=== PATIENT | male | born 1955 | race Caucasian/White ===

== ENCOUNTER 2018-01-11 13:21 | Outpatient (CLI) | payer OTHER | END 2018-01-11 13:22 | disposition short-term general hospital (02) | LOC: EMS 13:21 | PROVIDERS: ATTEND Surgery | DX: R19.5 Other fecal abnormalities (principal); R73.09 Other abnormal glucose | CPT/HCPCS: A0425; A0427 ==

== ENCOUNTER 2018-11-29 09:16 | Emergency (ER) | payer OTHER ==
[2018-11-29 09:27] VITALS: BP 141/55
--- NOTE | 2018-11-29 10:52 | ED Physician Documentation ---
History of Present Illness - Stated complaint Stated Complaint: MED REFILL - Chief complaint Chief Complaint: General - History obtained from History obtained from: Patient - History of Present Illness Timing: Today - Additonal information Additional information: 63-year-old insulin-dependent diabetic male has run out of needles. He thought he had another box and finds that he does not. He is requesting simply we provide a prescription for another box of needles. Review of Systems Constitutional: denies: Fever Respiratory: denies: Cough GI: denies: Vomiting PD PAST MEDICAL HISTORY - Past Medical History Past Medical History: Yes Endocrine/Autoimmune: Type 2 diabetes - Present Medications Home Medications: Ambulatory Orders Medication Instructions Recorded Confirmed Pen Needle, Diabetic [Insulin Pen 1 each MC DAILY PM #100 dis.needle 11/29/18 Needle] - Allergies Allergies/Adverse Reactions: Allergies Allergy/AdvReac Type Severity Reaction Status Date / Time No Known Drug Allergies Allergy Verified 11/29/18 09:24 - Social History Does the pt smoke?: No Smoking Status: Never smoker PD ED PE NORMAL - Vitals Vital signs reviewed: Yes (hypertensive mild ) - General General: Alert and oriented X 3, No acute distress, Well developed/nourished - HEENT HEENT: Atraumatic, PERRL, EOMI - Respiratory Respiratory: No respiratory distress - Derm Derm: Normal color, Warm and dry, No rash - Extremities Extremities: No deformity, No edema - Neuro Neuro: Alert and oriented X 3, 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 He is not otherwise ill. Departure - Departure Disposition: 01 Home, Self Care Clinical Impression: Encounter for issue of repeat prescription Condition: Stable Prescriptions: Pen Needle, Diabetic [Insulin Pen Needle] 1 each MC DAILY PM #100 dis.needle
== END 2018-11-29 10:55 | disposition home or self-care (01) ==
LOC: ED 09:16
DX: E11.9 Type 2 diabetes mellitus without complications (principal); Z79.4 Long term (current) use of insulin; Z76.0 Encounter for issue of repeat prescription
CPT/HCPCS: 99282; 99283

== ENCOUNTER 2021-09-21 13:13 | Outpatient (CLI) | payer MEDICARE, OTHER | END 2021-09-21 13:14 | disposition short-term general hospital (02) | LOC: EMS 13:13 | DX: R11.2 Nausea with vomiting, unspecified (principal); R19.7 Diarrhea, unspecified | CPT/HCPCS: A0425; A0429 ==

== ENCOUNTER 2023-11-24 15:30 | Emergency (ER) | payer MEDICARE, OTHER ==
[2023-11-24 15:40] VITALS: O2SAT 97
--- NOTE | 2023-11-24 16:20 | ED Physician Documentation ---
History of Present Illness - Stated complaint Stated Complaint: MED REFILL - Chief complaint Chief Complaint: General - History obtained from History obtained from: Patient - History of Present Illness Timing: Today (pt diabetic and L[place]. He does not want to be without. here for Rx.) PD PAST MEDICAL HISTORY - Past Medical History Past Medical History: Yes Endocrine/Autoimmune: Type 2 diabetes - Present Medications Home Medications: Ambulatory Orders Medication Instructions Recorded Confirmed Pen Needle, Diabetic [Insulin Pen 1 each MC DAILY PM #100 dis.needle 11/29/18 Needle] Insulin Glargine [Lantus Solostar] 70 unit SUBQ QPM #1 each 11/24/23 - Allergies Allergies/Adverse Reactions: Allergies Allergy/AdvReac Type Severity Reaction Status Date / Time No Known Drug Allergies Allergy Verified 11/24/23 15:35 - Social History Does the pt smoke?: No Smoking Status: Never smoker Does the pt drink ETOH?: No Does the pt have substance abuse?: No - Immunizations Immunizations are current?: Yes Results - Vitals Vitals: Oxygen O2 Source Room air PD Medical Decision Making - ED course Complexity details: considered differential (out of Lantus [place]. He does not want to be without of course. Here for Rx to get elsewhere. ), d/w patient Departure - Departure Disposition: 01 Home, Self Care Clinical Impression: Diabetes, Medication refill Condition: Stable Record reviewed to determine appropriate education?: Yes Prescriptions: Insulin Glargine [Lantus Solostar] 70 unit SUBQ QPM #1 each Comments: Continue with your usual medications of the Lantus. I sent a prescription to [facility] pharmacy. Forms: PCP List Discharge Date/Time: 11/24/23 16:33
[2023-11-24 16:41] VITALS: BP 140/60
== END 2023-11-24 16:33 | disposition home or self-care (01) ==
LOC: ED 15:30
DX: Z76.0 Encounter for issue of repeat prescription (principal); E11.9 Type 2 diabetes mellitus without complications; Z79.4 Long term (current) use of insulin
CPT/HCPCS: 99281; 99283

== ENCOUNTER 2024-05-24 12:54 | Inpatient (IN) ==
[2024-05-24 13:41] LABS: BASOPHILS % (AUTO) 0.3 %; EOSINOPHILS # (AUTO) 0.1 10^3/uL (0.0-0.7); EOSINOPHILS % (AUTO) 0.8 %; LYMPHOCYTES # (AUTO) 1.9 10^3/uL (1.5-3.5); LYMPHOCYTES % (AUTO) 14.7 %; MEAN CORPUSCULAR HEMOGLOBIN 29.7 pg (27.0-31.0); MEAN CORPUSCULAR HGB CONC 30.7 g/dL (32.0-36.0); MEAN CORPUSCULAR VOLUME 96.7 fL (80.0-94.0); MEAN PLATELET VOLUME 10.3 fL (7.4-11.4); MONOCYTES # (AUTO) 1.1 10^3/uL (0.0-1.0); MONOCYTES % (AUTO) 8.8 %; NEUTROPHILS # (AUTO) 9.6 10^3/uL (1.5-6.6); NEUTROPHILS % (AUTO) 74.5 %; NRBC ABSOLUTE COUNT (AUTO) 0.09 x10^3/uL; NUCLEATED RED BLOOD CELLS AUTO 0.7 /100WBC; PLT - PLATELET COUNT 153 10^3/uL (130-450); RED BLOOD COUNT 1.82 10^6/uL (4.70-6.10); RED CELL DISTRIBUTION WIDTH 16.8 % (12.0-15.0); WHITE BLOOD COUNT 12.9 x10^3/uL (4.8-10.8)
--- NOTE | 2024-05-24 13:43 | ED Physician Documentation ---
PD HPI SYNCOPE Stated complaint Stated Complaint: "NOT FEELING GOOD" Chief complaint Chief Complaint: General History obtained from History obtained from: Patient and EMS Meds/Allgy Home Medications Ambulatory Orders Medication Instructions Recorded Confirmed pen needle, diabetic 31 gauge x ##100 11/29/1805/21" insulin glargine 100 unit/mL (3 70 unit (0.7 mL) subcut QPM #1 ea 11/24/23 mL) subcutaneous pen (Lantus Solostar U-100 Insulin) Allergies Allergies Allergy/AdvReac Type Severity Reaction Status Date / Time No Known Drug Allergies Allergy Verified 05/24/24 13:05 PFSH Social History Social History Smoking Status: Never smoker Do you feel safe in your home environment?: Yes Suffered physical, verbal, emotional, or financial abuse?: No History of Abuse: No Results Vitals Vitals: Vital Signs - 24 hr 05/24/24 13:06 05/24/24 13:53 05/24/24 14:08 Temperature 36.5 C Temperature Source Oral Pulse Rate 88 63 66 Pulse Rate [Brachial] Respiratory Rate 22 14 16 Blood Pressure 110/40 L 108/37 L 112/34 L Blood Pressure [Left Brachial artery] O2 Saturation 98 100 97 O2 Source Room air Room air Room air Sedation scale Pain Intensity 4 0 05/24/24 14:38 05/24/24 15:08 05/24/24 16:09 Temperature 35.8 C L Temperature Source Temporal Artery Scan Pulse Rate 58 L 55 L Pulse Rate [Brachial] 61 Respiratory Rate 18 14 16 Blood Pressure 98/21 L 102/32 L Blood Pressure [Left Brachial artery] 104/39 L O2 Saturation 99 100 100 O2 Source Room air Room air Room air Sedation scale 1-Arouses easily Pain Intensity 05/24/24 16:28 Temperature 35.9 C L Temperature Source Temporal Artery Scan Pulse Rate Pulse Rate [Brachial] 60 Respiratory Rate 18 Blood Pressure Blood Pressure [Left Brachial artery] 98/44 L O2 Saturation 100 O2 Source Room air Sedation scale 1-Arouses easily Pain Intensity 4 Oxygen O2 Source Room air Labs Labs: Microbiology 05/24/24 14:08 Occult Blood - Final Stool Laboratory Tests 05/24/24 05/24/24 05/24/24 13:13 13:34 14:38 WBC 12.9 H RBC 1.82 L Hgb 5.4 L* Hct 17.6 L* MCV 96.7 H MCH 29.7 MCHC 30.7 L RDW 16.8 H Plt Count 153 MPV 10.3 Neut # (Auto) 9.6 H Lymph # (Auto) 1.9 [place] # (Auto) 1.1 H Eos # (Auto) 0.1 Baso # (Auto) 0.0 Absolute Nucleated RBC 0.09 Nucleated RBC % 0.7 Sodium 138 Potassium 4.5 Chloride 111 Carbon Dioxide 18 L Anion Gap 9.0 BUN 187 H* Creatinine 2.5 H Estimated GFR (MDRD) 26 L Glucose 177 H POC Whole Bld Glucose 155 Calcium 8.6 Magnesium 2.1 Iron < 10 L TIBC 321 % Saturation TNP Transferrin 229 Total Bilirubin 0.5 AST 39 ALT 28 Alkaline Phosphatase 48 Troponin I High Sens 19.4 Total Protein 5.5 L Albumin 2.9 L Globulin 2.6 Albumin/Globulin Ratio 1.1 Lipase 98 H Blood Type A POSITIVE Blood Type Recheck A POSITIVE Antibody Screen NEGATIVE Crossmatch IS Only See Detail PD Medical Decision Making ED course ED course: Patient with history of upper GI bleed in the past. He states he is been feeling generally weaker over the past several days and was seen at [facility] on 21 May with workup focused on heart with negative EKG, troponin, chest x-ray. He continue with feeling weaker and noted melena type diarrhea around that time and over the next 2 days as well. General weakness today and appears pale. He states he vomited once without any noted blood. No fever or chills or upper respiratory symptoms.He does have no abdominal tenderness. No history of liver disease or alcoholism. Denies history of varices but states he has had ulcers in the past. He is not on blood thinners. His abdomen is nontender. His rectal shows melena type stool which is guaiac positive. Blood pressure is initially slightly soft at 98/44 but improved with IV fluids. Heart rate is normal. Afebrile. Given IV Protonix and a fluid bolus. We will give 2 lines of IVs. I ordered 2 units of red blood cells and to keep the head 1 unit in lab. The patient's radhames al function is poor so held on any angio or contrast CT. Talked with the hospitalist who will see the patient for admission. Discharge Plan Discharge Patient Disposition: 66 [facility] DC/Xfer Condition: Stable Clinical Impression: Acute upper gastrointestinal bleeding, General weakness, Acute anemia Prescriptions: No Action (DME) pen needle, diabetic 1 EACH needle 1 ea miscellaneous DAILY PM Qty: 100 0RF insulin glargine [Lantus Solostar U-100 Insulin] 100 UNIT/ML insulin pen 70 unit subcut QPM Qty: 1 1RF Print Language: Syriac
[2024-05-24 13:51] LABS: HCT - HEMATOCRIT 17.6 % (42.0-52.0); HGB - HEMOGLOBIN 5.4 g/dL (14.0-18.0)
[2024-05-24 14:00] LABS: TROPONIN I HIGH SENSITIVITY 19.4 ng/L (2.3-19.7)
[2024-05-24 14:32] LABS: IRON < 10 ug/dL (50-212); MAGNESIUM 2.1 mg/dL (1.7-2.3); TOTAL IRON BINDING CAPACITY 321 ug/dL (250-450); TRANSFERRIN 229 mg/dL (203-362)
[2024-05-24] MEDS ORDERED: iohexoL-300 100 ML VIAL ONE (14:33)
[2024-05-24 14:38] LABS: ALBUMIN 2.9 g/dL (3.2-5.5); ALBUMIN/GLOBULIN RATIO 1.1 (1.0-2.2); BILIRUBIN,TOTAL 0.5 mg/dL (0.2-1.0); CALCIUM 8.6 mg/dL (8.5-10.3); CREATININE 2.5 mg/dL (0.6-1.3); POTASSIUM 4.5 mmol/L (3.5-4.5); TOTAL PROTEIN 5.5 g/dL (6.4-8.9)
[2024-05-24] MEDS: PANTOPRAZOLE 40 MG VIAL IVP STA (14:56)
--- NOTE | 2024-05-24 15:07 | XRAY Report ---
PROCEDURE: XR Chest 1V INDICATIONS: Chest pain TECHNIQUE: One view of the chest was acquired. COMPARISON: None. FINDINGS: Surgical changes and devices: None. Lungs and pleura: No pleural effusions or pneumothorax. Prominent interstitial markings No consolida tion. Mediastinum: Mediastinal contours appear normal. Heart size is enlarged. Bones and chest wall: No suspicious bony lesions. Overlying soft tissues appear unremarkable. IMPRESSION: Cardiomegaly. Prominent interstitial markings. Findings may represent pulmonary edema. Recommend clin ical correlation. Reviewed by: Mirza Toussaint MD on 05/24/2024 3:05 PM PST Approved by: Mirza Toussaint MD on 05/24/2024 3:05 PM PST Station ID: [id number]
[2024-05-24] MEDS: HYDROmorphone 1 MG/ML CARPUJECT IVP STA (16:39)
--- NOTE | 2024-05-24 17:02 | HISTORY & PHYSICAL EXAMINATION ---
Chief Complaint Chief Complaint Chief Complaint: Not feeling good History of Present Illness History Obtained From History obtained from: Patient interview, chart review Exam Limitations: Symptomatically anemic History of Present Illness HPI Comment/Other: 69-year-old male past medical history significant for diabetes on insulin. He reports generalized weakness times several days. He was seen at [facility] on 05/21/2024 with a cardiac focus which was negative. He has continued to feel weaker and presents here. He reports melanotic stools. He reports 1 episode of vomiting without amanda blood or coffee-ground emesis. No abdominal time tenderness. Denies fever, chills, chest pain, shortness of breath. He reports history of ulcers in the past. No history of alcoholism, liver disease, blood thinners. In the ER, chest x-ray was performed which showed prominent interstitial markings likely representing pulmonary edema. His H&H was noted to be 5.4/17.6. WBC 12.9. BUN/creatinine was 187/2.5. Iron less than 10. General surgery was contacted by the ER provider, he plans to see this patient in consultation. 2 units of blood were ordered by ER provider, and hospitalist was contacted for admission for acute blood loss anemia secondary to upper GI bleed Meds/Allgy Home Medications Ambulatory Orders Medication Instructions Recorded Confirmed pen needle, diabetic 31 gauge x ##100 11/29/1805/21" insulin glargine 100 unit/mL (3 70 unit (0.7 mL) subcut QPM #1 ea 11/23/ mL) subcutaneous pen (Lantus Solostar U-100 Insulin) Allergies Allergies Allergy/AdvReac Type Severity Reaction Status Date / Time No Known Drug Allergies Allergy Verified 05/24/24 13:05 [facility] Medical History Medical History (Updated 05/24/24 @ 17:12 by Jarod Howell DNP) Type 2 diabetes mellitus with insulin therapy Social History Social History Smoking Status: Never smoker Do you feel safe in your home environment?: Yes Suffered physical, verbal, emotional, or financial abuse?: No History of Abuse: No Review of Systems ROS limited due to symptomatic anemia Status of ROS: 10 or more systems reviewed and unremarkable except as noted in history and below Constitutional Reports: Malaise and Weakness; Denies: Fever or Chills Cardiovascular Denies: chest pain, palpitations or shortness of breath with exertion Respiratory Denies: Shortness of breath Gastrointestinal Reports: Nausea, Vomiting, Heartburn and Melena; Denies: Abdominal pain or Coffee grounds in vomit Genitourinary Denies: Painful urination Neurological Reports: General weakness and Weakness in extremities; Denies: Focal weakness Exam Exam Ill-appearing obese male in no acute distress HENMT normocephalic and head/scalp atraumatic Eyes PERRL Neck/C-Spine visual inspection normal Lymph no lymphadenopathy noted Chest inspection of chest normal Respiratory breath sounds equal bilaterally and normal respiratory effort Cardiovascular normal heart rate noted Gastrointestinal abdomen normal to inspection, nontender to palpation and normoactive bowel sounds Genitourinary bladder normal to palpation Extremities normal to inspection Neurology chair frame builder II-XII intact and GCS 15 Psychiatry mental status grossly normal Skin skin color abnormal (pale) Conclusion/Plan Problem List (1) Acute upper gastrointestinal bleeding: Plan: Admit inpatient Protonix IV push twice daily 40 mg General Surgery consult N.p.o., sips with meds Receiving 2 units PRBC now Keep 2 units ahead H&H every 4 Iron level less than 10 Ferrlecit one-time dose after 2 units of blood is transfused (2) Acute kidney failure: Plan: Likely secondary to hypovolemia Replete blood as above BMP in a.m. (3) Leukocytosis: Plan: Likely reactionary to acute blood loss anemia CBC in a.m. (4) Type 2 diabetes mellitus with insulin therapy: Plan: Home med list has not been verified yet, but it states that he is on 70 units of insulin at night A1c in a.m. SSI (5) Pulmonary edema: Plan: Noted on chest x-ray Saturating 100% on room air Will give Lasix if oxygenation status changes Plan Admit to inpatient Patient request DNR status He names his daughter as his surrogate decision-maker Lab Results Lab results reviewed: Yes 05/24/24 13:34 05/24/24 13:34 Diagnostic Imaging Results Diagnostic Imaging Results: positive Final report reviewed Diagnostic Imaging Results Comments: CXR chest: Pulmonary edema Core Measures Anticipated LOS I expect patient to be DC'd or transferred within 96 hours.: Yes DVT/VTE - Prophylaxis VTE/DVT Device ordered at admit?: Yes
[2024-05-24] MEDS ORDERED: ONDANSETRON 4 MG/2 ML VIAL IVP PRN (18:07)
[2024-05-24] MEDS ORDERED: ONDANSETRON ODT 4 MG TABLET TL PRN (18:07)
[2024-05-24] MEDS: FUROSEMIDE 20 MG/2 ML VIAL IVP SCH (19:54)
[2024-05-24] MEDS: SODIUM CHLORIDE FLUSH 0.9% 10 ML SYRINGE IVP SCH (19:55)
[2024-05-24] MEDS: PANTOPRAZOLE 40 MG VIAL IVP SCH (20:38)
[2024-05-24] MEDS: SODIUM CHLORIDE FLUSH 0.9% 10 ML SYRINGE IVP PRN (20:39)
[2024-05-24] MEDS: MIDODRINE 2.5 MG TABLET PO SCH (21:04)
[2024-05-24] MEDS ORDERED: MIDODRINE 2.5 MG TABLET PO PRN (21:47)
[2024-05-24] MEDS ORDERED: MIDODRINE 2.5 MG TABLET PO SCH (22:00)
[2024-05-24 23:21] LABS: HCT - HEMATOCRIT 23.4 % (42.0-52.0); HGB - HEMOGLOBIN 7.2 g/dL (14.0-18.0)
[2024-05-25] MEDS: ZINC OXIDE 20% OINT 30 GM TUBE TOP PRN (02:15)
[2024-05-25 02:25] LABS: HGB - HEMOGLOBIN 7.1 g/dL (14.0-18.0)
[2024-05-25] MEDS: ACETAMINOPHEN 325 MG TABLET PO PRN (04:53)
[2024-05-25] MEDS: SODIUM CHLORIDE 0.9% 250 ML IV ONE (04:57)
[2024-05-25] MEDS ORDERED: LACTATED RINGERS 1,000 ML IV SCH (05:00)
[2024-05-25 05:14] LABS: EOSINOPHILS # (AUTO) 0.3 10^3/uL (0.0-0.7); HGB - HEMOGLOBIN 7.1 g/dL (14.0-18.0)
[2024-05-25 05:18] LABS: BASOPHILS # (AUTO) 0.1 10^3/uL (0.0-0.1); BASOPHILS % (AUTO) 0.6 %; EOSINOPHILS % (AUTO) 3.1 %; HCT - HEMATOCRIT 22.5 % (42.0-52.0); LYMPHOCYTES # (AUTO) 1.5 10^3/uL (1.5-3.5); LYMPHOCYTES % (AUTO) 15.8 %; MEAN CORPUSCULAR HEMOGLOBIN 30.1 pg (27.0-31.0); MEAN CORPUSCULAR HGB CONC 31.6 g/dL (32.0-36.0); MEAN CORPUSCULAR VOLUME 95.3 fL (80.0-94.0); MONOCYTES # (AUTO) 0.8 10^3/uL (0.0-1.0); MONOCYTES % (AUTO) 8.8 %; NEUTROPHILS # (AUTO) 6.6 10^3/uL (1.5-6.6); NEUTROPHILS % (AUTO) 71.1 %; NRBC ABSOLUTE COUNT (AUTO) 0.08 x10^3/uL; NUCLEATED RED BLOOD CELLS AUTO 0.9 /100WBC; PLT - PLATELET COUNT 116 10^3/uL (130-450); RED BLOOD COUNT 2.36 10^6/uL (4.70-6.10); WHITE BLOOD COUNT 9.3 x10^3/uL (4.8-10.8)
[2024-05-25 05:28] LABS: MAGNESIUM 2.2 mg/dL (1.7-2.3)
[2024-05-25 05:43] LABS: ALBUMIN/GLOBULIN RATIO 1.4 (1.0-2.2); BILIRUBIN,TOTAL 0.5 mg/dL (0.2-1.0); CALCIUM 8.2 mg/dL (8.5-10.3); CREATININE 2.8 mg/dL (0.6-1.3); POTASSIUM 4.2 mmol/L (3.5-4.5); TOTAL PROTEIN 5.2 g/dL (6.4-8.9)
--- NOTE | 2024-05-25 07:15 | CONSULTATION NOTE ---
Referring Provider Name of Referring Provider:: Dr. Cardoso Consult Date: 05/25/24 Chief Complaint Chief Complaint Chief Complaint: Weakness, fatigue, melena History of Present Illness Admitted From Admitted From:: ED History Obtained From History obtained from: Patient Exam Limitations: None History of Present Illness HPI Comment/Other: 69 male with several days of black, tarry stool associated with fatigue and weakness. he denies abdominal pain. He denies the use of DOAC, NSAID's or antiplatelet medication. He claims to have a history of PUD and has been on antacids in the past but not recently. He was recently evaluated at an OSH for similar symptoms and his Hgb was 10gm/dL. Since admission he has received 2 units of PRBC and his Hgb changed from 5.4 -> 7.1. COUNTS INCLUDE 234 BEDS AT [facility] Medical History Medical History (Updated 05/24/24 @ 17:12 by Jarod Howell DNP) Type 2 diabetes mellitus with insulin therapy Social History Social History Smoking Status: Former smoker Level: Assisted Do you feel safe in your home environment?: Yes Suffered physical, verbal, emotional, or financial abuse?: No History of Abuse: No Meds/Allgy Home Medications Ambulatory Orders Medication Instructions Recorded Confirmed pen needle, diabetic 31 gauge x ##100 11/29/1805/21" insulin glargine 100 unit/mL (3 70 unit (0.7 mL) subcut QPM #1 ea 11/24/23 mL) subcutaneous pen (Lantus Solostar U-100 Insulin) Allergies Allergies Allergy/AdvReac Type Severity Reaction Status Date / Time No Known Drug Allergies Allergy Verified 05/24/24 13:05 Results Lab Results 05/25/24 05:05 05/25/24 05:05 Other Lab Results: Lab Results x24hrs 05/25/24 05/25/24 05/24/24 Range/Units 05:05 02:14 23:03 WBC 9.3 (4.8-10.8) x10^3/uL RBC 2.36 L (4.70-6.10) 10^6/uL Hgb 7.1 L 7.1 L 7.2 L (14.0-18.0) g/dL Hct 22.5 L 23.0 L 23.4 L (42.0-52.0) % MCV 95.3 H (80.0-94.0) fL MCH 30.1 (27.0-31.0) pg MCHC 31.6 L (32.0-36.0) g/dL RDW 17.0 H (12.0-15.0) % Plt Count 116 L (130-450) 10^3/uL MPV 10.0 (7.4-11.4) fL Neut # (Auto) 6.6 (1.5-6.6) 10^3/uL Lymph # (Auto) 1.5 (1.5-3.5) 10^3/uL [place] # (Auto) 0.8 (0.0-1.0) 10^3/uL Eos # (Auto) 0.3 (0.0-0.7) 10^3/uL Baso # (Auto) 0.1 (0.0-0.1) 10^3/uL Absolute Nucleated RBC 0.08 x10^3/uL Nucleated RBC % 0.9 /100WBC Sodium 138 (135-145) mmol/L Potassium 4.2 (3.5-4.5) mmol/L Chloride 110 (101-111) mmol/L Carbon Dioxide 20 L (21-32) mmol/L Anion Gap 8.0 (6-13) BUN 182 H* (6-20) mg/dL Creatinine 2.8 H (0.6-1.3) mg/dL Estimated GFR (MDRD) 22 L (>89) Glucose 154 H (74-104) mg/dL POC Whole Bld Glucose (70-100) mg/dL Calcium 8.2 L (8.5-10.3) mg/dL Magnesium 2.2 (1.7-2.3) mg/dL Iron (50-212) ug/dL TIBC (250-450) ug/dL % Saturation Transferrin (203-362) mg/dL Total Bilirubin 0.5 (0.2-1.0) mg/dL AST 35 (10-42) IU/L ALT 29 (10-60) IU/L Alkaline Phosphatase 55 (42-121) IU/L Troponin I High Sens (2.3-19.7) ng/L Total Protein 5.2 L (6.4-8.9) g/dL Albumin 3.0 L (3.2-5.5) g/dL Globulin 2.2 (2.1-4.2) g/dL Albumin/Globulin Ratio 1.4 (1.0-2.2) Lipase (11-82) U/L Blood Type Blood Type Recheck Antibody Screen Crossmatch IS Only 05/24/24 05/24/24 05/24/24 Range/Units 14:38 13:34 13:13 WBC 12.9 H (4.8-10.8) x10^3/uL RBC 1.82 L (4.70-6.10) 10^6/uL Hgb 5.4 L* (14.0-18.0) g/dL Hct 17.6 L* (42.0-52.0) % MCV 96.7 H (80.0-94.0) fL MCH 29.7 (27.0-31.0) pg MCHC 30.7 L (32.0-36.0) g/dL RDW 16.8 H (12.0-15.0) % Plt Count 153 (130-450) 10^3/uL MPV 10.3 (7.4-11.4) fL Neut # (Auto) 9.6 H (1.5-6.6) 10^3/uL Lymph # (Auto) 1.9 (1.5-3.5) 10^3/uL [place] # (Auto) 1.1 H (0.0-1.0) 10^3/uL Eos # (Auto) 0.1 (0.0-0.7) 10^3/uL Baso # (Auto) 0.0 (0.0-0.1) 10^3/uL Absolute Nucleated RBC 0.09 x10^3/uL Nucleated RBC % 0.7 /100WBC Sodium 138 (135-145) mmol/L Potassium 4.5 (3.5-4.5) mmol/L Chloride 111 (101-111) mmol/L Carbon Dioxide 18 L (21-32) mmol/L Anion Gap 9.0 (6-13) BUN 187 H* (6-20) mg/dL Creatinine 2.5 H (0.6-1.3) mg/dL Estimated GFR (MDRD) 26 L (>89) Glucose 177 H (74-104) mg/dL POC Whole Bld Glucose 155 (70-100) mg/dL Calcium 8.6 (8.5-10.3) mg/dL Magnesium 2.1 (1.7-2.3) mg/dL Iron < 10 L (50-212) ug/dL TIBC 321 (250-450) ug/dL % Saturation TNP Transferrin 229 (203-362) mg/dL Total Bilirubin 0.5 (0.2-1.0) mg/dL AST 39 (10-42) IU/L ALT 28 (10-60) IU/L Alkaline Phosphatase 48 (42-121) IU/L Troponin I High Sens 19.4 (2.3-19.7) ng/L Total Protein 5.5 L (6.4-8.9) g/dL Albumin 2.9 L (3.2-5.5) g/dL Globulin 2.6 (2.1-4.2) g/dL Albumin/Globulin Ratio 1.1 (1.0-2.2) Lipase 98 H (11-82) U/L Blood Type A POSITIVE Blood Type Recheck A POSITIVE Antibody Screen NEGATIVE Crossmatch IS Only See Detail Conclusion and Plan Diagnosis Diagnosis: Acute blood loss anemia due to suspected UGI hemorrhage Plan Plan: 1) EGD for diagnosis and possible therapeutic intervention Consent: EGD Pérez has been counseled for the procedure (Upper endoscopy, possible open procedure to control bleeding), it's indications, risks, benefits and expected outcome as well as alternative therapies. We specifically discussed risks associated with anesthesia and insertion of the endoscope into the UGI tract which includes bleeding and/or injury to the esophagus which may require surgical intervention. Pérez understands, agrees, and consents to the proposed operative strategy and requests that we proceed with the procedure as outlined in our discussion. Les Subramanian MD, [facility] General Surgery Service Review of Systems Constitutional Reports: Fatigue, Malaise, Weakness and Poor appetite Gastrointestinal Reports: Melena Endocrine Reports: Fatigue Exam Constitutional average body habitus [facility] normocephalic, head/scalp atraumatic and hearing grossly normal bilaterally Eyes PERRL and EOMs intact bilaterally Neck/C-Spine visual inspection normal and trachea midline Lymph no lymphadenopathy noted Chest inspection of chest normal Respiratory breath sounds equal bilaterally and normal respiratory effort Cardiovascular normal heart rate noted and regular rhythm noted 2/6 CARLOS Gastrointestinal abdomen normal to inspection, abdomen soft to palpation and nontender to palpation Neurology no movement abnormality noted Psychiatry Drowsy Skin skin color normal and no jaundice
[2024-05-25] MEDS ORDERED: KETAMINE 500 MG/10 ML VIAL ONE (08:20)
[2024-05-25] MEDS ORDERED: PROPOFOL 200 MG/20 ML VIAL IVP ONE (08:20)
[2024-05-25] MEDS ORDERED: ePHEDrine 50 MG/ML VIAL IVP ONE (08:20)
[2024-05-25] MEDS ORDERED: PHENYLEPHRINE HCL 0.5 MG/5 ML AMPULE ONE (08:20)
[2024-05-25] MEDS ORDERED: LIDOCAINE-PF 2% 10 ML AMP SUBQ ONE (08:20)
[2024-05-25] MEDS ORDERED: SODIUM CHLORIDE 0.9% 100ML 100 ML IV ONE (08:31)
--- NOTE | 2024-05-25 09:11 | PROVIDER PROGRESS NOTE ---
Progress Note Progress Note Progress Note: General Surgery Brief Procedure Note (see "Provation" for details) Preop Diagnosis: Anemia, suspect UGI source Postop Diagnosis: Orozco gastroduodenitis with multiple superficial, non-bleeding duodenal ulcers Procedure: EGD with antral biopsies for HP Recommendation: 1) Mylanta 30 ml PO Q6H for next 36 hours 2) PPI for next 10 weeks 3) Serial H&H and transfuse as indicated 4) Surgery will follow Les Subramanian MD, FACS General Surgery Service
[2024-05-25] MEDS: ACETAMINOPHEN 325 MG TABLET PO ONE (09:14)
--- NOTE | 2024-05-25 09:14 | ANESTHESIA PROCEDURE NOTE ---
Pre-Anesthesia VS, & Labs Diagnosis Surgical Diagnosis:: anemia Procedure Procedure: EGD Vitals Vital Signs: Temp Pulse Resp BP Pulse Ox O2 Flow Rate 36.5 C 63 14 95/39 L 100 2 05/25/24 08:38 05/25/24 08:38 05/25/24 08:38 05/25/24 08:38 05/25/24 08:38 05/24/24 18:12 NPO NPO: >8 hours Lab Results Current Lab Results: Laboratory Tests 05/25/24 05:05: WBC 9.3, RBC 2.36 L, Hgb 7.1 L, Hct 22.5 L, MCV 95.3 H, MCH 30.1, MCHC 31.6 L, RDW 17.0 H, Plt Count 116 L, MPV 10.0, Neut # (Auto) 6.6, Lymph # (Auto) 1.5, [place] # (Auto) 0.8, Eos # (Auto) 0.3, Baso # (Auto) 0.1, Absolute Nucleated RBC 0.08, Nucleated RBC % 0.9, Sodium 138, Potassium 4.2, Chloride 110, Carbon Dioxide 20 L, Anion Gap 8.0, BUN 182 H*, Creatinine 2.8 H, Estimated GFR (MDRD) 22 L, Glucose 154 H, Calcium 8.2 L, Magnesium 2.2, Total Bilirubin 0.5, AST 35, ALT 29, Alkaline Phosphatase 55, Total Protein 5.2 L, A lbumin 3.0 L, Globulin 2.2, Albumin/Globulin Ratio 1.4 05/25/24 02:14: Hgb 7.1 L, Hct 23.0 L 05/24/24 23:03: Hgb 7.2 L, Hct 23.4 L 05/24/24 14:38: Blood Type A POSITIVE, Antibody Screen NEGATIVE, Crossmatch IS Only See Detail 05/24/24 13:34: WBC 12.9 H, RBC 1.82 L, Hgb 5.4 L*, Hct 17.6 L*, MCV 96.7 H, MCH 29.7, MCHC 30.7 L, RDW 16.8 H, Plt Count 153, MPV 10.3, Neut # (Auto) 9.6 H, Lymph # (Auto) 1.9, [place] # (Auto) 1.1 H, Eos # (Auto) 0.1, Baso # (Auto) 0.0, Absolute Nucleated RBC 0.09, Nucleated RBC % 0.7, Sodium 138, Potassium 4.5, Chloride 111, Carbon Dioxide 18 L, Anion Gap 9.0, BUN 187 H*, Creatinine 2.5 H, Estimated GFR (MDRD) 26 L, Glucose 177 H, Calcium 8.6, Magnesium 2.1, Iron < 10 L, TIBC 321, % Saturation TNP, Transferrin 229, Total Bilirubin 0.5, AST 39, ALT 28, Alkaline Phosphatase 48, Troponin I High Sens 19.4, Total Protein 5.5 L, A lbumin 2.9 L, Globulin 2.6, Albumin/Globulin Ratio 1.1, Lipase 98 H, Blood Type Recheck A POSITIVE 05/24/24 13:13: POC Whole Bld Glucose 155 05/25/24 05:05 05/25/24 05:05 Meds/Allgy Home Medications Ambulatory Orders Medication Instructions Recorded Confirmed pen needle, diabetic 31 gauge x ##100 11/29/1805/21" insulin glargine 100 unit/mL (3 70 unit (0.7 mL) subcut QPM #1 ea 11/24/23 mL) subcutaneous pen (Lantus Solostar U-100 Insulin) Allergies Allergies Allergy/AdvReac Type Severity Reaction Status Date / Time No Known Drug Allergies Allergy Verified 05/24/24 13:05 [facility] Medical History Medical History (Updated 05/25/24 @ 09:17 by Ketty Lemons CRNA) Encounter for issue of repeat prescription Acute upper gastrointestinal bleeding General weakness Acute anemia Pulmonary edema Acute kidney failure Leukocytosis Type 2 diabetes mellitus with insulin therapy Social History Social History Smoking Status: Former smoker Level: Assisted Do you feel safe in your home environment?: Yes Suffered physical, verbal, emotional, or financial abuse?: No History of Abuse: No POLST POLST Status: DNR Anesthesia Exam (Expanded) Exam General: Moderate distress Dental: WNL Mouth Opening: Greater than 4 Fingerbreadths Neck Mobility: Normal Mallampati classification: III Thyromental Distance: less than 4 cm Respiratory: Decreased breath sounds Cardiovascular: Regular rate Mental/Cognitive Status: Lethargic and Change from baseline Plan Plan Anesthesia Type: General and Total IV Consent for Procedure(s) Verified and Reviewed: Yes Code Status: Do Not Attempt Resuscitation ASA Classification ASA classification: 4-Incapacitating disease Is this case an emergency?: Yes
[2024-05-25] MEDS: FERRIC GLUCONATE 125 MG in SODIUM CHLORIDE 0.9% 100ML 100 ML IV ONE (09:23)
[2024-05-25 11:02] LABS: HCT - HEMATOCRIT 23.3 % (42.0-52.0)
--- NOTE | 2024-05-25 11:04 | PHARMACY PROGRESS NOTE ---
Best Possible Medication History Admit Date and Time: 05/24/24 1653 Home Medications Medication Instructions Recorded Confirmed Type pen needle, diabetic 31 gauge x ##100 11/29/18 Rx 1/" insulin glargine 100 unit/mL (3 70 unit (0.7 mL) subcut QPM #1 ea 11/24/23 05/25/24 Rx mL) subcutaneous pen (Lantus Solostar U-100 Insulin) empagliflozin 10 mg tablet 10 mg PO DAILY 05/25/24 05/25/24 History (Jardiance) ferrous sulfate 325 mg (65 mg 325 mg PO DAILY 05/25/24 05/25/24 History iron) tablet (Feosol) levothyroxine 137 mcg tablet 137 mcg PO DAILY 05/25/24 05/25/24 History (Synthroid) metformin 1,000 mg tablet 1,000 mg PO BID 05/25/24 05/25/24 History multivitamin 1 tab PO DAILY 05/25/24 05/25/24 History rosuvastatin 20 mg tablet 20 mg PO HS 05/25/24 05/25/24 History telmisartan 80 1 tab PO DAILY 05/25/24 05/25/24 History mg-hydrochlorothiazide 25 mg tablet Processed by: Pharmacy Medications reviewed in ED?: No Medication History completed: Yes Patient Interview: Completed Secondary Source(s): Insurance records [facility] Statement: As the person ultimately responsible for medication therapy, providers are able to order a medication from an existing home medication list in [facility] via the "Reconcile Routine" prior to Confirmation of that medication by peer support specialist. Such practice is discouraged except when the physician, in their clinical judgment, deems that a medical need exists for a medication without regard to previous use.
--- NOTE | 2024-05-25 11:16 | ANESTHESIA POST OP EVALUATION ---
Anesthesia Post Eval Post Anesthesia Eval Vitals: Last Vital Signs Temp 36.5 C 05/25/24 08:38 Pulse 63 05/25/24 08:38 Resp 14 05/25/24 08:38 BP 95/39 L 05/25/24 08:38 Pulse Ox 100 05/25/24 08:38 O2 Flow Rate 2 05/24/24 18:12 CV Function Including HR & BP: Stable Pain Control: Satisfactory Nausea & Vomiting: Negative Mental Status: Baseline Respiratory Status: Airway Patent Hydration Status: Satisfactory Anesthesia Complications: None
--- NOTE | 2024-05-25 11:53 | PROVIDER PROGRESS NOTE ---
Subjective Prog Note Date Prog Note Date: 05/25/24 Subjective Pt reports feeling: Improved Current Medications Current Medications Current Medications: Current Medications Generic Name Dose Route Start Last Admin Trade Name Freq PRN Reason Stop Dose Admin Acetaminophen 650 mg 05/24/24 18:07 05/25/24 04:53 Acetaminophen 325 Mg Tablet PO 650 mg Q4HR PRN Administration Pain 1 to 4, or Fever Al Hydroxide/Mg Hydroxide 30 ml 05/25/24 11:00 Mag Hydrox/Al Hydrox/Simeth 30 Ml Udc PO Q4HR DENISHA Furosemide 20 mg 05/24/24 18:25 05/25/24 09:15 Furosemide 20 Mg/2 Ml Vial IVP 20 mg DAILY DENISHA Administration Insulin Glargine-yfgn 70 unit 05/25/24 21:00 Insulin Glargine-Yfgn 300 Unit/3 Ml Pen SUBQ QPM DENISHA Midodrine 5 mg 05/24/24 20:29 05/25/24 06:02 Midodrine 2.5 Mg Tablet PO 5 mg TID DENISHA Administration Midodrine 5 mg 05/24/24 21:47 Midodrine 2.5 Mg Tablet PO 05/25/24 21:46 ONCE PRN NEEDED PER PROVIDER ORDERS Multi-Ingredient Ointment 1 applic 05/24/24 22:03 05/25/24 02:15 Zinc Oxide 20% Oint 30 Gm Tube TOP 1 applic PRN PRN Administration Skin Care Ondansetron HCl 4 mg 05/24/24 18:07 Ondansetron Odt 4 Mg Tablet TL Q6HR PRN Nausea / Vomiting Ondansetron HCl 4 mg 05/24/24 18:07 Ondansetron 4 Mg/2 Ml Vial IVP Q6HR PRN Nausea / Vomiting Pantoprazole Sodium 40 mg 05/24/24 21:00 05/25/24 09:15 Pantoprazole 40 Mg Vial IVP 40 mg BID DENISHA Administration Sodium Bicarbonate 1,300 mg 05/25/24 11:00 Sodium Bicarbonate 650 Mg Tablet PO BID DENISHA Sodium Chloride 10 ml 05/24/24 18:07 05/25/24 02:16 Sodium Chloride Flush 0.9% 10 Ml Syringe IVP 10 ml PRN PRN Administration NEEDED PER PROVIDER ORDERS Sodium Chloride 10 ml 05/24/24 18:07 05/25/24 09:15 Sodium Chloride Flush 0.9% 10 Ml Syringe IVP 10 ml 0100,0900,1700 DENISHA Administration Objective Vital Signs/Intake & Output Reviewed Vital Signs: Yes Vital Signs: Vital Signs x48h Temp Pulse Resp BP BP Pulse Ox 05/25/24 11:46 36.7 C 66 16 107/43 L 98 05/25/24 11:34 36.4 C L 67 16 107/43 L 99 05/25/24 08:38 36.5 C 63 14 95/39 L 100 05/25/24 08:17 36.4 C L 60 18 106/41 L 98 05/25/24 06:06 36.3 C L 62 16 99/43 L 89/30 L 95 05/25/24 04:20 36.5 C 60 20 98/34 L 100 Intake & Output: Intake & Output 05/22/24 05/23/24 05/24/24 05/25/24 23:59 23:59 23:59 23:59 Intake Total 1050 / 1050 360 / 360 Output Total 300 / 300 300 / 300 Balance 750 / 750 60 / 60 Weight (kg) 133.5 kg Objective General Appearance: positive No acute distress and Alert Eyes Bilateral: positive Normal inspection ENT: positive No signs of dehydration Neck: positive No JVD Respiratory: positive Chest non-tender, No respiratory distress and Breath sounds nml Cardiovascular: positive Regular rate & rhythm and Systolic murmur Abdomen: positive Non-tender Skin: positive Color nml Extremities: positive Non-tender Neurologic/Psychiatric: positive Oriented x3 Lab Results 05/25/24 10:53 05/25/24 05:05 Other Labs: Lab Results x24hrs 05/25/24 05/25/24 05/25/24 Range/Units 10:53 05:05 02:14 WBC 9.3 (4.8-10.8) x10^3/uL RBC 2.36 L (4.70-6.10) 10^6/uL Hgb 7.0 L* 7.1 L 7.1 L (14.0-18.0) g/dL Hct 23.3 L 22.5 L 23.0 L (42.0-52.0) % MCV 95.3 H (80.0-94.0) fL MCH 30.1 (27.0-31.0) pg MCHC 31.6 L (32.0-36.0) g/dL RDW 17.0 H (12.0-15.0) % Plt Count 116 L (130-450) 10^3/uL MPV 10.0 (7.4-11.4) fL Neut # (Auto) 6.6 (1.5-6.6) 10^3/uL Lymph # (Auto) 1.5 (1.5-3.5) 10^3/uL [place] # (Auto) 0.8 (0.0-1.0) 10^3/uL Eos # (Auto) 0.3 (0.0-0.7) 10^3/uL Baso # (Auto) 0.1 (0.0-0.1) 10^3/uL Absolute Nucleated RBC 0.08 x10^3/uL Nucleated RBC % 0.9 /100WBC Sodium 138 (135-145) mmol/L Potassium 4.2 (3.5-4.5) mmol/L Chloride 110 (101-111) mmol/L Carbon Dioxide 20 L (21-32) mmol/L Anion Gap 8.0 (6-13) BUN 182 H* (6-20) mg/dL Creatinine 2.8 H (0.6-1.3) mg/dL Estimated GFR (MDRD) 22 L (>89) Glucose 154 H (74-104) mg/dL POC Whole Bld Glucose (70-100) mg/dL Calcium 8.2 L (8.5-10.3) mg/dL Magnesium 2.2 (1.7-2.3) mg/dL Iron (50-212) ug/dL TIBC (250-450) ug/dL % Saturation Transferrin (203-362) mg/dL Total Bilirubin 0.5 (0.2-1.0) mg/dL AST 35 (10-42) IU/L ALT 29 (10-60) IU/L Alkaline Phosphatase 55 (42-121) IU/L Troponin I High Sens (2.3-19.7) ng/L Total Protein 5.2 L (6.4-8.9) g/dL Albumin 3.0 L (3.2-5.5) g/dL Globulin 2.2 (2.1-4.2) g/dL Albumin/Globulin Ratio 1.4 (1.0-2.2) Lipase (11-82) U/L Blood Type Blood Type Recheck Antibody Screen Crossmatch IS Only 05/24/24 05/24/24 05/24/24 Range/Units 23:03 14:38 13:34 WBC 12.9 H (4.8-10.8) x10^3/uL RBC 1.82 L (4.70-6.10) 10^6/uL Hgb 7.2 L 5.4 L* (14.0-18.0) g/dL Hct 23.4 L 17.6 L* (42.0-52.0) % MCV 96.7 H (80.0-94.0) fL MCH 29.7 (27.0-31.0) pg MCHC 30.7 L (32.0-36.0) g/dL RDW 16.8 H (12.0-15.0) % Plt Count 153 (130-450) 10^3/uL MPV 10.3 (7.4-11.4) fL Neut # (Auto) 9.6 H (1.5-6.6) 10^3/uL Lymph # (Auto) 1.9 (1.5-3.5) 10^3/uL [place] # (Auto) 1.1 H (0.0-1.0) 10^3/uL Eos # (Auto) 0.1 (0.0-0.7) 10^3/uL Baso # (Auto) 0.0 (0.0-0.1) 10^3/uL Absolute Nucleated RBC 0.09 x10^3/uL Nucleated RBC % 0.7 /100WBC Sodium 138 (135-145) mmol/L Potassium 4.5 (3.5-4.5) mmol/L Chloride 111 (101-111) mmol/L Carbon Dioxide 18 L (21-32) mmol/L Anion Gap 9.0 (6-13) BUN 187 H* (6-20) mg/dL Creatinine 2.5 H (0.6-1.3) mg/dL Estimated GFR (MDRD) 26 L (>89) Glucose 177 H (74-104) mg/dL POC Whole Bld Glucose (70-100) mg/dL Calcium 8.6 (8.5-10.3) mg/dL Magnesium 2.1 (1.7-2.3) mg/dL Iron < 10 L (50-212) ug/dL TIBC 321 (250-450) ug/dL % Saturation TNP Transferrin 229 (203-362) mg/dL Total Bilirubin 0.5 (0.2-1.0) mg/dL AST 39 (10-42) IU/L ALT 28 (10-60) IU/L Alkaline Phosphatase 48 (42-121) IU/L Troponin I High Sens 19.4 (2.3-19.7) ng/L Total Protein 5.5 L (6.4-8.9) g/dL Albumin 2.9 L (3.2-5.5) g/dL Globulin 2.6 (2.1-4.2) g/dL Albumin/Globulin Ratio 1.1 (1.0-2.2) Lipase 98 H (11-82) U/L Blood Type A POSITIVE Blood Type Recheck A POSITIVE Antibody Screen NEGATIVE Crossmatch IS Only See Detail 05/24/24 Range/Units 13:13 WBC (4.8-10.8) x10^3/uL RBC (4.70-6.10) 10^6/uL Hgb (14.0-18.0) g/dL Hct (42.0-52.0) % MCV (80.0-94.0) fL MCH (27.0-31.0) pg MCHC (32.0-36.0) g/dL RDW (12.0-15.0) % Plt Count (130-450) 10^3/uL MPV (7.4-11.4) fL Neut # (Auto) (1.5-6.6) 10^3/uL Lymph # (Auto) (1.5-3.5) 10^3/uL [place] # (Auto) (0.0-1.0) 10^3/uL Eos # (Auto) (0.0-0.7) 10^3/uL Baso # (Auto) (0.0-0.1) 10^3/uL Absolute Nucleated RBC x10^3/uL Nucleated RBC % /100WBC Sodium (135-145) mmol/L Potassium (3.5-4.5) mmol/L Chloride (101-111) mmol/L Carbon Dioxide (21-32) mmol/L Anion Gap (6-13) BUN (6-20) mg/dL Creatinine (0.6-1.3) mg/dL Estimated GFR (MDRD) (>89) Glucose (74-104) mg/dL POC Whole Bld Glucose 155 (70-100) mg/dL Calcium (8.5-10.3) mg/dL Magnesium (1.7-2.3) mg/dL Iron (50-212) ug/dL TIBC (250-450) ug/dL % Saturation Transferrin (203-362) mg/dL Total Bilirubin (0.2-1.0) mg/dL AST (10-42) IU/L ALT (10-60) IU/L Alkaline Phosphatase (42-121) IU/L Troponin I High Sens (2.3-19.7) ng/L Total Protein (6.4-8.9) g/dL Albumin (3.2-5.5) g/dL Globulin (2.1-4.2) g/dL Albumin/Globulin Ratio (1.0-2.2) Lipase (11-82) U/L Blood Type Blood Type Recheck Antibody Screen Crossmatch IS Only Assessment/Plan Problem List (1) Pulmonary edema: Impression: He is likely in a acute heart failure along with his acute kidney failure. I am avoiding large volumes of fluid resuscitation. An echocardiogram has been ordered. He had some low blood pressures, for which midodrine was started. If his oxygenation worsens, will start IV diuresis. I am holding off for now because of his acute kidney failure. I am hoping with administration of blood and bicarb as described above that his kidney failure will start to resolve and he will begin self diuresing. (2) Acute upper gastrointestinal bleeding: Impression: Protonix IV push twice daily Underwent EGD per general surgery, Recommendations as follows: 1) Mylanta 30 ml PO Q6H for next 36 hours 2) PPI for next 10 weeks 3) Serial H&H and transfuse as indicated (3) Acute kidney failure: Impression: Renal ultrasound ordered Creatinine has worsened overnight even with blood transfusion BMP in a.m. Has a bicarb deficit of 213 mEq. I am cautious in replating his bicarb IV, as he is currently fluid overloaded 50 mEq bicarb IV push x 3, Starting sodium bicarb pills (4) Type 2 diabetes mellitus with insulin therapy: Impression: Med rec shows that he takes greater than 70 units of Lantus at night. Given his acute kidney issues, will hold off on this and managed with only SSI. Will reassess tomorrow to see if he needs Long-acting insulin. An A1c was ordered, but this may be inaccurate given his anemia with multiple blood transfusions. Discussed this with dietitian/diabetes resource team, she is in agreement (5) Leukocytosis: Impression: Resolved (6) Iron deficiency: Impression: His iron level on presentation was undetectably low. He received a dose of Ferrlecit. Resuming home iron supplementation
[2024-05-25] MEDS: MAG HYDROX/AL HYDROX/SIMETH 30 ML UDC PO SCH ×2 (11:58→13:14)
--- NOTE | 2024-05-25 12:05 | Ultrasound Report ---
PROCEDURE: US Renal (Retroperitoneal) INDICATIONS: acute renal failure TECHNIQUE: Real-time scanning was performed of the retroperitoneal organs, with image documentation. COMPARISON: None. FINDINGS: Kidneys: Kidneys are normal in size. Right kidney measures 12.5 cm long; left kidney measures 10.8 cm long. Right renal cortical thickness is 1.0 cm; left renal cortical thickness is 1.1 cm. No gretta d masses, hydronephrosis, or nephrolithiasis. Left renal midpole simple cyst measuring 2.7 x 3.2 x 3 .1 cm. Bladder: Pre-void bladder volume is 277 mL. Patient unable to void. Pre-void images demonstrate no intraluminal masses or stones. On pre-void images, bilateral ureteral jets are noted with color Dopp ler interrogation. (Of note, ureteral jets may not be detectable in up to 25% of cases due to insuff icient differences in specific gravity between ureteral and bladder urine). Miscellaneous: Ascites is present.. IMPRESSION: 1.Limited exam. The kidneys are grossly normal in appearance. No hydronephrosis. 2.Bladder volume of 277 cc, patient was unable to void. Correlate for bladder outlet obstruction. 3.Ascites is present. Reviewed by: Mirza Toussaint MD on 05/25/2024 12:04 PM PST Approved by: Mirza Toussaint MD on 05/25/2024 12:04 PM PST Station ID: [id number]
[2024-05-25] MEDS: diphenhydrAMINE 25 MG CAPSULE PO ONE (13:11)
[2024-05-25] MEDS: SODIUM BICARBONATE 650 MG TABLET PO SCH ×2 (13:12→17:34)
[2024-05-25] MEDS: SODIUM BICARBONATE ABBOJECT 50 MEQ/50 ML SYRINGE IVP SCH ×2 (14:05→19:04)
[2024-05-25] MEDS: SODIUM BICARBONATE ABBOJECT 50 MEQ/50 ML SYRINGE IVP ONE (15:09)
[2024-05-25 16:13] LABS: HCT - HEMATOCRIT 24.6 % (42.0-52.0); HGB - HEMOGLOBIN 7.5 g/dL (14.0-18.0)
[2024-05-25] MEDS: INSULIN LISPRO 300 UNIT/3 ML PEN SUBQ SCH (17:16)
[2024-05-25] MEDS ORDERED: NON FORMULARY MED (Rosuvastatin 20 mg tablet) PO SCH (21:00)
[2024-05-25] MEDS ORDERED: INSULIN GLARGINE-YFGN 300 UNIT/3 ML PEN SUBQ SCH (21:00)
[2024-05-25] MEDS: ATORVASTATIN 40 MG TABLET PO SCH (21:45)
[2024-05-26 01:20] LABS: HCT - HEMATOCRIT 22.7 % (42.0-52.0); HGB - HEMOGLOBIN 7.3 g/dL (14.0-18.0)
[2024-05-26] MEDS: SODIUM CHLORIDE 0.9% 250 ML IV ONE (02:09)
[2024-05-26] MEDS: LEVOTHYROXINE 75 MCG TABLET PO SCH (06:13)
[2024-05-26] MEDS: LEVOTHYROXINE 100 MCG TABLET PO SCH (06:15)
[2024-05-26 06:21] LABS: BASOPHILS % (AUTO) 0.9 %; EOSINOPHILS # (AUTO) 0.3 10^3/uL (0.0-0.7); EOSINOPHILS % (AUTO) 5.6 %; HCT - HEMATOCRIT 21.4 % (42.0-52.0); LYMPHOCYTES # (AUTO) 1.1 10^3/uL (1.5-3.5); LYMPHOCYTES % (AUTO) 23.7 %; MEAN CORPUSCULAR HEMOGLOBIN 30.1 pg (27.0-31.0); MEAN CORPUSCULAR HGB CONC 31.8 g/dL (32.0-36.0); MEAN CORPUSCULAR VOLUME 94.7 fL (80.0-94.0); MEAN PLATELET VOLUME 9.6 fL (7.4-11.4); MONOCYTES # (AUTO) 0.6 10^3/uL (0.0-1.0); NEUTROPHILS # (AUTO) 2.7 10^3/uL (1.5-6.6); NEUTROPHILS % (AUTO) 57.2 %; NRBC ABSOLUTE COUNT (AUTO) 0.04 x10^3/uL; NUCLEATED RED BLOOD CELLS AUTO 0.9 /100WBC; PLT - PLATELET COUNT 68 10^3/uL (130-450); RED BLOOD COUNT 2.26 10^6/uL (4.70-6.10); WHITE BLOOD COUNT 4.7 x10^3/uL (4.8-10.8)
--- NOTE | 2024-05-26 06:32 | PROVIDER PROGRESS NOTE ---
Progress Note Progress Note Progress Note: General Surgery Progress Note S: Awake and comfortable. He tells me he feels better O: VSS, afeb; Abdomen soft; H&H 7.3/22.7 A: UGI bleed due to gastritis and several superficial duodenal ulcers. Biopsy for HP pending. H&H stable; On PPI and mylanta P: Continue antacid therapy. Advance diet as tolerated. Increase activity. Les Subramanian MD, FACS General Surgery Service
[2024-05-26 06:35] LABS: HGB - HEMOGLOBIN 6.8 g/dL (14.0-18.0)
[2024-05-26 06:54] LABS: CALCIUM 7.7 mg/dL (8.5-10.3); CREATININE 2.6 mg/dL (0.6-1.3); POTASSIUM 3.8 mmol/L (3.5-4.5)
[2024-05-26] MEDS ORDERED: LEVOTHYROXINE 137 MCG PO SCH (09:00)
[2024-05-26] MEDS: FERROUS SULFATE 325 MG TABLET PO SCH (09:10)
[2024-05-26] MEDS: MULTIVITAMIN TABLET PO SCH (12:18)
[2024-05-26 13:58] LABS: HCT - HEMATOCRIT 24.6 % (42.0-52.0); HGB - HEMOGLOBIN 7.6 g/dL (14.0-18.0)
--- NOTE | 2024-05-26 15:10 | PROVIDER PROGRESS NOTE ---
Subjective Prog Note Date Prog Note Date: 05/26/24 Prog Note Time: 11:00 Subjective Subjective: Initially sleeping when I came in this AM. Getting a unit of blood. Wright in place. Later today, I come in, and he is up eating. He states that he is concerned about what might come after this hospitalization. concerned about needing rehab. He was not seen by rehab today due to getting blood. Current Medications Current Medications Current Medications: Current Medications Generic Name Dose Route Start Last Admin Trade Name Kamila PRN Reason Stop Dose Admin Acetaminophen 650 mg 05/24/24 18:07 05/26/24 00:39 Acetaminophen 325 Mg Tablet PO 650 mg Q4HR PRN Administration Pain 1 to 4, or Fever Al Hydroxide/Mg Hydroxide 30 ml 05/25/24 12:00 05/26/24 12:18 Mag Hydrox/Al Hydrox/Simeth 30 Ml Udc PO 30 ml Q6H DENISHA Administration Atorvastatin Calcium 40 mg 05/25/24 21:00 05/25/24 21:45 Atorvastatin 40 Mg Tablet PO 40 mg QPM DENISHA Administration Ferrous Sulfate 325 mg 05/26/24 09:00 05/26/24 09:10 Ferrous Sulfate 325 Mg Tablet PO 325 mg DAILY DENISHA Administration Furosemide 20 mg 05/24/24 18:25 05/26/24 09:30 Furosemide 20 Mg/2 Ml Vial IVP 20 mg DAILY DENISHA Administration Insulin Human Lispro 1 - 5 unit 05/25/24 17:00 05/26/24 12:17 Insulin Lispro 300 Unit/3 Ml Pen SUBQ 1 unit 0800,1200,1700,2100 DENISHA Administration Protocol Levothyroxine Sodium 100 mcg 05/26/24 07:00 05/26/24 06:15 Levothyroxine 100 Mcg Tablet PO 100 mcg QDAC DENISHA Administration Levothyroxine Sodium 37.5 mcg 05/26/24 07:00 05/26/24 06:13 Levothyroxine 75 Mcg Tablet PO 37.5 mcg QDAC DENISHA Administration Midodrine 5 mg 05/24/24 20:29 05/26/24 14:28 Midodrine 2.5 Mg Tablet PO 5 mg TID DENISHA Administration Multi-Ingredient Ointment 1 applic 05/24/24 22:03 05/25/24 02:15 Zinc Oxide 20% Oint 30 Gm Tube TOP 1 applic PRN PRN Administration Skin Care Multivitamins 1 tab 05/26/24 12:00 05/26/24 12:18 Multivitamin Tablet PO 1 tab 1200 DENISHA Administration Ondansetron HCl 4 mg 05/24/24 18:07 Ondansetron Odt 4 Mg Tablet TL Q6HR PRN Nausea / Vomiting Ondansetron HCl 4 mg 05/24/24 18:07 Ondansetron 4 Mg/2 Ml Vial IVP Q6HR PRN Nausea / Vomiting Pantoprazole Sodium 40 mg 05/24/24 21:00 05/26/24 09:10 Pantoprazole 40 Mg Vial IVP 40 mg BID DENISHA Administration Sodium Bicarbonate 1,300 mg 05/25/24 17:00 05/26/24 09:10 Sodium Bicarbonate 650 Mg Tablet PO 1,300 mg BID DENISHA Administration Sodium Chloride 10 ml 05/24/24 18:07 05/25/24 19:05 Sodium Chloride Flush 0.9% 10 Ml Syringe IVP 10 ml PRN PRN Administration NEEDED PER PROVIDER ORDERS Sodium Chloride 10 ml 05/24/24 18:07 05/26/24 09:11 Sodium Chloride Flush 0.9% 10 Ml Syringe IVP 10 ml 0100,0900,1700 DENISHA Administration Objective Vital Signs/Intake & Output Reviewed Vital Signs: Yes Vital Signs: Vital Signs x48h Temp Pulse Resp BP Pulse Ox 05/26/24 12:58 36.5 C 64 18 100/65 98 05/26/24 10:18 36.5 C 60 20 114/41 L 98 05/26/24 10:15 36.5 C 57 L 20 98/35 L 98 05/26/24 10:01 36.5 C 87 20 98/35 L 98 05/26/24 09:15 36.5 C 62 18 119/46 L 98 05/26/24 09:00 36.7 C 69 20 112/85 96 Intake & Output: Intake & Output 05/23/24 05/24/24 05/25/24 05/26/24 23:59 23:59 23:59 23:59 Intake Total 1050 / 1050 1500 / 1500 1830 / 1830 Output Total 300 / 300 2650 / 2650 750 / 750 Balance 750 / 750 -1150 / -1150 1080 / 1080 Weight (kg) 133.5 kg Objective General Appearance: positive No acute distress and Alert Eyes Bilateral: positive Normal inspection ENT: positive No signs of dehydration Neck: positive No JVD Respiratory: positive Chest non-tender, No respiratory distress and Breath sounds nml Cardiovascular: positive Regular rate & rhythm and Systolic murmur Abdomen: positive Non-tender Skin: positive Color nml Extremities: positive Non-tender Neurologic/Psychiatric: positive Oriented x3 Lab Results 05/26/24 20:03 05/26/24 06:03 Other Labs: Lab Results x24hrs 05/26/24 05/26/24 05/26/24 Range/Units 13:53 11:42 07:34 WBC (4.8-10.8) x10^3/uL RBC (4.70-6.10) 10^6/uL Hgb 7.6 L (14.0-18.0) g/dL Hct 24.6 L (42.0-52.0) % MCV (80.0-94.0) fL MCH (27.0-31.0) pg MCHC (32.0-36.0) g/dL RDW (12.0-15.0) % Plt Count (130-450) 10^3/uL MPV (7.4-11.4) fL Neut # (Auto) (1.5-6.6) 10^3/uL Lymph # (Auto) (1.5-3.5) 10^3/uL Thomas # (Auto) (0.0-1.0) 10^3/uL Eos # (Auto) (0.0-0.7) 10^3/uL Baso # (Auto) (0.0-0.1) 10^3/uL Absolute Nucleated RBC x10^3/uL Nucleated RBC % /100WBC Sodium (135-145) mmol/L Potassium (3.5-4.5) mmol/L Chloride (101-111) mmol/L Carbon Dioxide (21-32) mmol/L Anion Gap (6-13) BUN (6-20) mg/dL Creatinine (0.6-1.3) mg/dL Estimated GFR (MDRD) (>89) Glucose (74-104) mg/dL POC Whole Bld Glucose 167 123 (70-100) mg/dL Calcium (8.5-10.3) mg/dL Blood Type Antibody Screen Crossmatch IS Only 0105/26/24 05/25/24 Range/Units 06:03 01:04 20:32 WBC 4.7 L (4.8-10.8) x10^3/uL RBC 2.26 L (4.70-6.10) 10^6/uL Hgb 6.8 L* 7.3 L (14.0-18.0) g/dL Hct 21.4 L 22.7 L (42.0-52.0) % MCV 94.7 H (80.0-94.0) fL MCH 30.1 (27.0-31.0) pg MCHC 31.8 L (32.0-36.0) g/dL RDW 17.0 H (12.0-15.0) % Plt Count 68 L (130-450) 10^3/uL MPV 9.6 (7.4-11.4) fL Neut # (Auto) 2.7 (1.5-6.6) 10^3/uL Lymph # (Auto) 1.1 L (1.5-3.5) 10^3/uL Thomas # (Auto) 0.6 (0.0-1.0) 10^3/uL Eos # (Auto) 0.3 (0.0-0.7) 10^3/uL Baso # (Auto) 0.0 (0.0-0.1) 10^3/uL Absolute Nucleated RBC 0.04 x10^3/uL Nucleated RBC % 0.9 /100WBC Sodium 140 (135-145) mmol/L Potassium 3.8 (3.5-4.5) mmol/L Chloride 109 (101-111) mmol/L Carbon Dioxide 24 (21-32) mmol/L Anion Gap 7.0 (6-13) BUN 165 H* (6-20) mg/dL Creatinine 2.6 H (0.6-1.3) mg/dL Estimated GFR (MDRD) 24 L (>89) Glucose 140 H (74-104) mg/dL POC Whole Bld Glucose 149 (70-100) mg/dL Calcium 7.7 L (8.5-10.3) mg/dL Blood Type Antibody Screen Crossmatch IS Only 05/25/24 05/25/24 05/24/24 Range/Units 16:58 15:59 14:38 WBC (4.8-10.8) x10^3/uL RBC (4.70-6.10) 10^6/uL Hgb 7.5 L (14.0-18.0) g/dL Hct 24.6 L (42.0-52.0) % MCV (80.0-94.0) fL MCH (27.0-31.0) pg MCHC (32.0-36.0) g/dL RDW (12.0-15.0) % Plt Count (130-450) 10^3/uL MPV (7.4-11.4) fL Neut # (Auto) (1.5-6.6) 10^3/uL Lymph # (Auto) (1.5-3.5) 10^3/uL Thomas # (Auto) (0.0-1.0) 10^3/uL Eos # (Auto) (0.0-0.7) 10^3/uL Baso # (Auto) (0.0-0.1) 10^3/uL Absolute Nucleated RBC x10^3/uL Nucleated RBC % /100WBC Sodium (135-145) mmol/L Potassium (3.5-4.5) mmol/L Chloride (101-111) mmol/L Carbon Dioxide (21-32) mmol/L Anion Gap (6-13) BUN (6-20) mg/dL Creatinine (0.6-1.3) mg/dL Estimated GFR (MDRD) (>89) Glucose (74-104) mg/dL POC Whole Bld Glucose 129 (70-100) mg/dL Calcium (8.5-10.3) mg/dL Blood Type A POSITIVE Antibody Screen NEGATIVE Crossmatch IS Only See Detail Assessment/Plan Problem List (1) Pulmonary edema: Impression: He is likely in a acute heart failure along with his acute kidney failure. I am avoiding large volumes of fluid resuscitation. He received Lasix this morning with blood transfusion. 20 mg. His fluid balance is negative for 10 mL today. He continues to have some pitting edema on exam. Echocardiogram shows LVH with hyperdynamic systolic function 75% ejection fraction mildly dilated right ventricle with normal function pulmonary pressure 35 mmHg there is sclerosis of the aortic valve without stenosis and mild mitral calcification with trace regurgitation. He had some low blood pressures, for which midodrine was started. If his oxygenation worsens, will start IV diuresis. I am holding off for now because of his acute kidney failure. His kidneys are stable to improving, and he has not required supplemental oxygen. for now will stay the course. (2) Acute upper gastrointestinal bleeding: Impression: Protonix IV push twice daily Underwent EGD per general surgery, Recommendations as follows: 1) Mylanta 30 ml PO Q6H for next 36 hours 2) PPI for next 10 weeks 3) Serial H&H and transfuse as indicated (3) Acute kidney failure: Impression: Renal ultrasound shows No hydronephrosis. The renal cortices are normal in appearance. There was some concern for bladder outlet obstruction. Wright has since been inserted. Creatinine has worsened overnight even with blood transfusion BMP in a.m. Creatinine shows slight improvement from 2.6 to 2.4 bicarb deficit has resolved. I will continue with bicarbonate tablets. His renal function is stable to improving. His baseline creatinine is Not available to me. (4) Type 2 diabetes mellitus with insulin therapy: Impression: Med rec shows that he takes greater than 70 units of Lantus at night. Given his acute kidney issues, will hold off on this and managed with only SSI. He currently on low correction scale insulin and has not required lots of insulin. I will continue to hold his Lantus. A1c is not accurate given number of blood transfusions at this point. Would recommend that he follow-up with hemoglobin A1c in the outpatient environment and further assessment of his diabetes. (5) Leukocytosis: Impression: Resolved (6) Iron deficiency: Impression: His iron level on presentation was undetectably low. He received a dose of Ferrlecit. Resuming home iron supplementation I have spent 38 minutes in the care of this patient today. This includes time [id number], review and ordering of diagnostic imaging and laboratory studies.. Monitoring the patient's signs symptoms, evaluation of medication effectiveness and patient's response to treatment.
[2024-05-26] MEDS: MIDODRINE 2.5 MG TABLET PO SCH (18:12)
[2024-05-26 20:07] LABS: HCT - HEMATOCRIT 23.3 % (42.0-52.0); HGB - HEMOGLOBIN 7.4 g/dL (14.0-18.0)
[2024-05-27 07:29] LABS: BASOPHILS % (AUTO) 0.5 %; EOSINOPHILS # (AUTO) 0.3 10^3/uL (0.0-0.7); EOSINOPHILS % (AUTO) 5.3 %; HCT - HEMATOCRIT 27.4 % (42.0-52.0); HGB - HEMOGLOBIN 8.6 g/dL (14.0-18.0); LYMPHOCYTES # (AUTO) 1.2 10^3/uL (1.5-3.5); LYMPHOCYTES % (AUTO) 20.9 %; MEAN CORPUSCULAR HEMOGLOBIN 30.3 pg (27.0-31.0); MEAN CORPUSCULAR HGB CONC 31.4 g/dL (32.0-36.0); MEAN CORPUSCULAR VOLUME 96.5 fL (80.0-94.0); MEAN PLATELET VOLUME 10.3 fL (7.4-11.4); MONOCYTES # (AUTO) 0.7 10^3/uL (0.0-1.0); MONOCYTES % (AUTO) 11.9 %; NEUTROPHILS # (AUTO) 3.4 10^3/uL (1.5-6.6); NEUTROPHILS % (AUTO) 60.7 %; NRBC ABSOLUTE COUNT (AUTO) 0.02 x10^3/uL; NUCLEATED RED BLOOD CELLS AUTO 0.4 /100WBC; PLT - PLATELET COUNT 83 10^3/uL (130-450); RED BLOOD COUNT 2.84 10^6/uL (4.70-6.10); RED CELL DISTRIBUTION WIDTH 17.1 % (12.0-15.0); WHITE BLOOD COUNT 5.6 x10^3/uL (4.8-10.8)
[2024-05-27 07:50] LABS: CALCIUM 8.2 mg/dL (8.5-10.3); CREATININE 2.2 mg/dL (0.6-1.3); POTASSIUM 4.2 mmol/L (3.5-4.5)
--- NOTE | 2024-05-27 10:43 | PROVIDER PROGRESS NOTE ---
Progress Note Progress Note Progress Note: The patient is currently receivin antacid therapy for gastritis and superficial ulceration of the duodenum. He is hemodynamically stable and his H&H is stable (8.6/27.4). The General Surgery Service will sign off today. Please do not hesitate to contact us if you have further questions or concerns or if you wish to have us continue to follow this patient with you. Les Subramanian MD, FACS General Surgery Service
--- NOTE | 2024-05-27 12:50 | PROVIDER PROGRESS NOTE ---
Subjective Prog Note Date Prog Note Date: 05/27/24 Subjective Subjective: I have stopped by the room 3 times today. The patient has been somnolent at each visit. He just does not seem willing to wake up and engage with me. His vital signs have been normal. He has worked with physical therapy today as well as Occupational Therapy. Recommendation is for [facility] facility. This evening he is finally more awake and alert. However, he is evasive with most of his answers. He can tell me that he is in [place] but says [place] [employer] [place] he knows the month and the year and he is oriented to self. When I ask him about people who have called and checked in on him here in the hospital he is very evasive with his answers and cannot really tell me who these people are or why they would be interested in how he is doing. He does tell me that he has a daughter who lives in [place]. He states that he would be okay with me calling her to talk about how he is doing. Current Medications Current Medications Current Medications: Current Medications Generic Name Dose Route Start Last Admin Trade Name Freq PRN Reason Stop Dose Admin Acetaminophen 650 mg 05/24/24 18:07 05/26/24 00:39 Acetaminophen 325 Mg Tablet PO 650 mg Q4HR PRN Administration Pain 1 to 4, or Fever Al Hydroxide/Mg Hydroxide 30 ml 05/25/24 12:00 05/27/24 12:09 Mag Hydrox/Al Hydrox/Simeth 30 Ml Udc PO 30 ml Q6H DENISHA Administration Atorvastatin Calcium 40 mg 05/25/24 21:00 05/26/24 20:35 Atorvastatin 40 Mg Tablet PO 40 mg QPM DENISHA Administration Ferrous Sulfate 325 mg 05/26/24 09:00 05/27/24 08:39 Ferrous Sulfate 325 Mg Tablet PO 325 mg DAILY DENISHA Administration Furosemide 40 mg 05/28/24 09:00 Furosemide 40 Mg Tablet PO DAILY DENISHA Insulin Human Lispro 1 - 5 unit 05/25/24 17:00 05/27/24 12:09 Insulin Lispro 300 Unit/3 Ml Pen SUBQ Not Given 0800,1200,1700,2100 DENISHA Protocol Levothyroxine Sodium 100 mcg 05/26/24 07:00 05/27/24 06:16 Levothyroxine 100 Mcg Tablet PO 100 mcg QDAC DENISHA Administration Levothyroxine Sodium 37.5 mcg 05/26/24 07:00 05/27/24 06:16 Levothyroxine 75 Mcg Tablet PO 37.5 mcg QDAC DENISHA Administration Midodrine 5 mg 05/26/24 18:00 05/27/24 11:48 Midodrine 2.5 Mg Tablet PO 5 mg 0600,1100,1700 DENISHA Administration Multi-Ingredient Ointment 1 applic 05/24/24 22:03 05/25/24 02:15 Zinc Oxide 20% Oint 30 Gm Tube TOP 1 applic PRN PRN Administration Skin Care Multivitamins 1 tab 05/26/24 12:00 05/27/24 12:09 Multivitamin Tablet PO 1 tab 1200 DENISHA Administration Ondansetron HCl 4 mg 05/24/24 18:07 Ondansetron Odt 4 Mg Tablet TL Q6HR PRN Nausea / Vomiting Ondansetron HCl 4 mg 05/24/24 18:07 Ondansetron 4 Mg/2 Ml Vial IVP Q6HR PRN Nausea / Vomiting Pantoprazole Sodium 40 mg 05/27/24 16:00 Pantoprazole 40 Mg Tablet PO BIDAC [facility] Sodium Bicarbonate 1,300 mg 05/25/24 17:00 05/27/24 08:39 Sodium Bicarbonate 650 Mg Tablet PO 1,300 mg BID DENISHA Administration Sodium Chloride 10 ml 05/24/24 18:07 05/26/24 20:36 Sodium Chloride Flush 0.9% 10 Ml Syringe IVP 10 ml PRN PRN Administration NEEDED PER PROVIDER ORDERS Sodium Chloride 10 ml 05/24/24 18:07 05/27/24 08:40 Sodium Chloride Flush 0.9% 10 Ml Syringe IVP 10 ml 0100,0900,1700 DENISHA Administration Objective Vital Signs/Intake & Output Reviewed Vital Signs: Yes Vital Signs: Vital Signs x48h Temp Pulse Resp BP BP Pulse Ox O2 Flow Rate 05/27/24 08:30 36.4 C L 66 19 126/43 L 95 0 05/27/24 06:08 36.6 C 72 18 123/50 L 98 Intake & Output: Intake & Output 05/24/24 05/25/24 05/26/24 05/27/24 23:59 23:59 23:59 23:59 Intake Total 1050 / 1050 1500 / 1500 1860 / 1860 Output Total 300 / 300 2650 / 2650 2475 / 2475 2650 / 2650 Balance 750 / 750 -1150 / -1150 -615 / -615 -2650 / -2650 Weight (kg) 133.5 kg Objective General Appearance: positive No acute distress and Alert Eyes Bilateral: positive Normal inspection ENT: positive No signs of dehydration Neck: positive No JVD Respiratory: positive Chest non-tender, No respiratory distress and Breath sounds nml Cardiovascular: positive Regular rate & rhythm and Systolic murmur Abdomen: positive Non-tender Skin: positive Color nml Extremities: positive Non-tender Neurologic/Psychiatric: positive Oriented x3, Disoriented to place and Other (moves all extremities equally. ) Lab Results 05/27/24 19:05 05/27/24 19:05 Other Labs: Lab Results x24hrs 05/27/24 05/27/24 05/27/24 Range/Units 11:45 07:48 07:23 WBC 5.6 (4.8-10.8) x10^3/uL RBC 2.84 L (4.70-6.10) 10^6/uL Hgb 8.6 L (14.0-18.0) g/dL Hct 27.4 L (42.0-52.0) % MCV 96.5 H (80.0-94.0) fL MCH 30.3 (27.0-31.0) pg MCHC 31.4 L (32.0-36.0) g/dL RDW 17.1 H (12.0-15.0) % Plt Count 83 L (130-450) 10^3/uL MPV 10.3 (7.4-11.4) fL Neut # (Auto) 3.4 (1.5-6.6) 10^3/uL Lymph # (Auto) 1.2 L (1.5-3.5) 10^3/uL Hancock # (Auto) 0.7 (0.0-1.0) 10^3/uL Eos # (Auto) 0.3 (0.0-0.7) 10^3/uL Baso # (Auto) 0.0 (0.0-0.1) 10^3/uL Absolute Nucleated RBC 0.02 x10^3/uL Nucleated RBC % 0.4 /100WBC Sodium 144 (135-145) mmol/L Potassium 4.2 (3.5-4.5) mmol/L Chloride 111 (101-111) mmol/L Carbon Dioxide 26 (21-32) mmol/L Anion Gap 7.0 (6-13) BUN 125 H* (6-20) mg/dL Creatinine 2.2 H (0.6-1.3) mg/dL Estimated GFR (MDRD) 30 L (>89) Glucose 157 H (74-104) mg/dL POC Whole Bld Glucose 138 143 (70-100) mg/dL Calcium 8.2 L (8.5-10.3) mg/dL Blood Type Antibody Screen Crossmatch IS Only 05/26/24 05/26/24 05/26/24 Range/Units 20:33 20:03 16:43 WBC (4.8-10.8) x10^3/uL RBC (4.70-6.10) 10^6/uL Hgb 7.4 L (14.0-18.0) g/dL Hct 23.3 L (42.0-52.0) % MCV (80.0-94.0) fL MCH (27.0-31.0) pg MCHC (32.0-36.0) g/dL RDW (12.0-15.0) % Plt Count (130-450) 10^3/uL MPV (7.4-11.4) fL Neut # (Auto) (1.5-6.6) 10^3/uL Lymph # (Auto) (1.5-3.5) 10^3/uL Hancock # (Auto) (0.0-1.0) 10^3/uL Eos # (Auto) (0.0-0.7) 10^3/uL Baso # (Auto) (0.0-0.1) 10^3/uL Absolute Nucleated RBC x10^3/uL Nucleated RBC % /100WBC Sodium (135-145) mmol/L Potassium (3.5-4.5) mmol/L Chloride (101-111) mmol/L Carbon Dioxide (21-32) mmol/L Anion Gap (6-13) BUN (6-20) mg/dL Creatinine (0.6-1.3) mg/dL Estimated GFR (MDRD) (>89) Glucose (74-104) mg/dL POC Whole Bld Glucose 143 143 (70-100) mg/dL Calcium (8.5-10.3) mg/dL Blood Type Antibody Screen Crossmatch IS Only 05/26/24 05/24/24 Range/Units 13:53 14:38 WBC (4.8-10.8) x10^3/uL RBC (4.70-6.10) 10^6/uL Hgb 7.6 L (14.0-18.0) g/dL Hct 24.6 L (42.0-52.0) % MCV (80.0-94.0) fL MCH (27.0-31.0) pg MCHC (32.0-36.0) g/dL RDW (12.0-15.0) % Plt Count (130-450) 10^3/uL MPV (7.4-11.4) fL Neut # (Auto) (1.5-6.6) 10^3/uL Lymph # (Auto) (1.5-3.5) 10^3/uL Hancock # (Auto) (0.0-1.0) 10^3/uL Eos # (Auto) (0.0-0.7) 10^3/uL Baso # (Auto) (0.0-0.1) 10^3/uL Absolute Nucleated RBC x10^3/uL Nucleated RBC % /100WBC Sodium (135-145) mmol/L Potassium (3.5-4.5) mmol/L Chloride (101-111) mmol/L Carbon Dioxide (21-32) mmol/L Anion Gap (6-13) BUN (6-20) mg/dL Creatinine (0.6-1.3) mg/dL Estimated GFR (MDRD) (>89) Glucose (74-104) mg/dL POC Whole Bld Glucose (70-100) mg/dL Calcium (8.5-10.3) mg/dL Blood Type A POSITIVE Antibody Screen NEGATIVE Crossmatch IS Only See Detail Assessment/Plan Problem List (1) Pulmonary edema: Impression: 05/27:He continues to have hypotension which is symptomatic with ambulation. He is on midodrine. His ejection fraction is within normal limits and he has some aortic sclerosis. His mental status is much worse today. He is able to lie flat in bed is not having any paroxysmal dyspnea. And his lower extremity edema is not worse.He is -2800 mL for the day. But his creatinine continues to improve. I repeated labs this afternoon, given his change in mental status. I do not see any explanation. 05/26:He is likely in a acute heart failure along with his acute kidney failure. I am avoiding large volumes of fluid resuscitation. He received Lasix this morning with blood transfusion. 20 mg. His fluid balance is negative for 10 mL today. He continues to have some pitting edema on exam. Echocardiogram shows LVH with hyperdynamic systolic function 75% ejection fraction mildly dilated right ventricle with normal function pulmonary pressure 35 mmHg there is sclerosis of the aortic valve without stenosis and mild mitral calcification with trace regurgitation. He had some low blood pressures, for which midodrine was started. If his oxygenation worsens, will start IV diuresis. I am holding off for now because of his acute kidney failure. His kidneys are stable to improving, and he has not required supplemental oxygen. for now will stay the course. (2) Acute upper gastrointestinal bleeding: Impression: Protonix IV push twice daily Underwent EGD per general surgery, Recommendations as follows: 1) Mylanta 30 ml PO Q6H for next 36 hours 2) PPI for next 10 weeks 3) Serial H&H and transfuse as indicated Pathology reviewed. It is H. pylori negative. There are mild patchy reactive changes on gastric biopsy. (3) Acute kidney failure: Impression: Renal ultrasound shows No hydronephrosis. The renal cortices are normal in appearance. There was some concern for bladder outlet obstruction. Wright has since been inserted. Creatinine has worsened overnight even with blood transfusion BMP in a.m. Creatinine shows slight improvement from 2.6 to 2.4 bicarb deficit has resolved. I will continue with bicarbonate tablets. His renal function is stable to improving. His baseline creatinine is Not available to me. Laboratory Tests 05/24/24 05/25/24 05/26/24 13:34 05:05 06:03 BUN 187 H* 182 H* 165 H* Creatinine 2.8 H 2.6 H 05/27/24 05/27/24 07:23 19:05 BUN 125 H* 107 H* Creatinine 2.2 H 2.0 H (4) Type 2 diabetes mellitus with insulin therapy: Impression: Med rec shows that he takes greater than 70 units of Lantus at night. Given his acute kidney issues, will hold off on this and managed with only SSI. He currently on low correction scale insulin and has not required lots of insulin. I will continue to hold his Lantus. A1c is not accurate given number of blood transfusions at this point. Would recommend that he follow-up with hemoglobin A1c in the outpatient environment and further assessment of his diabetes. Laboratory Tests 05/26/24 05/27/24 05/27/24 20:33 07:48 11:45 POC Whole Bld Glucose 143 143 138 05/27/24 16:42 POC Whole Bld Glucose 160 (5) Leukocytosis: Impression: Resolved (6) Iron deficiency: Impression: His iron level on presentation was undetectably low. He received a dose of Ferrlecit. Resuming home iron supplementation I have spent 36 minutes in the care of this patient today. This includes time [id number], review and ordering of diagnostic imaging and laboratory studies.. Monitoring the patient's signs symptoms, evaluation of medication effectiveness and patient's response to treatment.
--- NOTE | 2024-05-27 13:51 | PT Plan of Care ---
Medical/Surgical Past History Past History Medical History (Updated 05/25/24 @ 12:08 by Jarod Howell DNP) Encounter for issue of repeat prescription General weakness Acute anemia Leukocytosis Type 2 diabetes mellitus with insulin therapy
--- NOTE | 2024-05-27 14:01 | OT Plan of Care ---
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 He reports generalized weakness times several days. He was seen at [facility] on 05/21/2024 with a cardiac focus which was negative. He has continued to feel weaker and presents here. He reports melanotic stools. He reports 1 episode of vomiting without amanda blood or coffee-ground emesis. In the ER, chest x-ray was performed which showed prominent interstitial markings likely representing pulmonary edema. His H&H was noted to be 5.4/17.6. WBC 12.9. BUN/creatinine was 187/2.5. Iron less than 10. General surgery was contacted by the ER provider EGD completed ; no acute bleeding noted however required cont units PRBC 2/2 H&H drop. Cont with symptomatic hypotension. Further workup revealed HEVER and Heart failure. Pt met supine in bed, lethargic but arousable to verbal s and tactile stim. A&Ox3 confused to situation. Follows 1 step simple commands with cues and increased time. Presenting with slowed processing and overall cognition however able to participate. Performed supine to sit MAX A x2 EOB MIN A during gown change MAX A x2 sit to stand and SPT bed to chair. Symptomatic hypotension as follows supine 100/46, 118/53 sitting EOB, 102/47 s/p transfer with symptoms, [id number] SPT chair to bed supine 112/40 HR maintained 60s. Symptoms improved supine in bed. RN updated. Currently MAX A ADLs with full set up and increased time. Overall cont to present with decreased endurance, activity tolerance, and ADL status. Will benefit from cont OT services during acute stay. Rec d/c to SNF. -Activities of Daily Living Improve Upper Extremity Dressing to:: Modified Independent Improve Lower Extremity Dressing to:: Modified Independent Improve Grooming/Hygiene to:: Modified Independent Improve Bathing to:: Modified Independent Improve Toileting to:: Modified Independent OT Inpatient Plan PLAN Treatment Frequency: 1x/day Duration: Until goals are met -Discharge Recommendations [facility] Transport Needs at Discharge: [facility]
[2024-05-27] MEDS: PANTOPRAZOLE 40 MG TABLET PO SCH (19:05)
[2024-05-27 19:10] LABS: BASOPHILS % (AUTO) 0.7 %; EOSINOPHILS # (AUTO) 0.2 10^3/uL (0.0-0.7); EOSINOPHILS % (AUTO) 4.2 %; HCT - HEMATOCRIT 27.9 % (42.0-52.0); HGB - HEMOGLOBIN 8.6 g/dL (14.0-18.0); LYMPHOCYTES # (AUTO) 0.9 10^3/uL (1.5-3.5); LYMPHOCYTES % (AUTO) 19.5 %; MEAN CORPUSCULAR HGB CONC 30.8 g/dL (32.0-36.0); MEAN CORPUSCULAR VOLUME 97.2 fL (80.0-94.0); MEAN PLATELET VOLUME 10.9 fL (7.4-11.4); MONOCYTES # (AUTO) 0.5 10^3/uL (0.0-1.0); MONOCYTES % (AUTO) 11.2 %; NEUTROPHILS # (AUTO) 2.9 10^3/uL (1.5-6.6); NEUTROPHILS % (AUTO) 63.7 %; NRBC ABSOLUTE COUNT (AUTO) 0.02 x10^3/uL; NUCLEATED RED BLOOD CELLS AUTO 0.4 /100WBC; PLT - PLATELET COUNT 72 10^3/uL (130-450); RED BLOOD COUNT 2.87 10^6/uL (4.70-6.10); RED CELL DISTRIBUTION WIDTH 17.2 % (12.0-15.0); WHITE BLOOD COUNT 4.6 x10^3/uL (4.8-10.8)
[2024-05-27 19:39] LABS: BILIRUBIN,TOTAL 0.7 mg/dL (0.2-1.0); CALCIUM 8.6 mg/dL (8.5-10.3); POTASSIUM 4.1 mmol/L (3.5-4.5); TOTAL PROTEIN 5.9 g/dL (6.4-8.9)
[2024-05-28 06:00] LABS: BASOPHILS % (AUTO) 0.7 %; EOSINOPHILS # (AUTO) 0.3 10^3/uL (0.0-0.7); EOSINOPHILS % (AUTO) 4.7 %; HCT - HEMATOCRIT 27.6 % (42.0-52.0); HGB - HEMOGLOBIN 8.6 g/dL (14.0-18.0); LYMPHOCYTES % (AUTO) 17.2 %; MEAN CORPUSCULAR HGB CONC 31.2 g/dL (32.0-36.0); MEAN CORPUSCULAR VOLUME 96.2 fL (80.0-94.0); MEAN PLATELET VOLUME 9.9 fL (7.4-11.4); MONOCYTES # (AUTO) 0.6 10^3/uL (0.0-1.0); MONOCYTES % (AUTO) 10.2 %; NEUTROPHILS # (AUTO) 3.7 10^3/uL (1.5-6.6); NEUTROPHILS % (AUTO) 66.8 %; PLT - PLATELET COUNT 91 10^3/uL (130-450); RED BLOOD COUNT 2.87 10^6/uL (4.70-6.10); RED CELL DISTRIBUTION WIDTH 17.1 % (12.0-15.0); WHITE BLOOD COUNT 5.5 x10^3/uL (4.8-10.8)
[2024-05-28 06:25] LABS: CALCIUM 8.3 mg/dL (8.5-10.3)
[2024-05-28 06:31] LABS: THYROID STIMULATING HORMONE 5.79 uIU/mL (0.34-5.60)
[2024-05-28] MEDS: NYSTATIN POWDER 15 GM TOP SCH (09:11)
[2024-05-28] MEDS: FUROSEMIDE 40 MG TABLET PO SCH (09:11)
[2024-05-28] MEDS: ZINC OXIDE 20% OINT 30 GM TUBE TOP SCH (09:11)
[2024-05-28] MEDS ORDERED: LEVOTHYROXINE 25 MCG TABLET PO SCH (11:00)
[2024-05-28] MEDS: LACTATED RINGERS 1,000 ML IV ONE (11:33)
--- NOTE | 2024-05-28 16:23 | PROVIDER PROGRESS NOTE ---
Subjective Prog Note Date Prog Note Date: 05/28/24 Prog Note Time: 16:22 Subjective Subjective: continues to be mildly confused, but better today. he is able to recognize friends at the bedside. Yesterday, he was not able to do this. has some cramping in his legs. Current Medications Current Medications Current Medications: Current Medications Generic Name Dose Route Start Last Admin Trade Name Jagdishq PRN Reason Stop Dose Admin Acetaminophen 650 mg 05/24/24 18:07 05/28/24 12:46 Acetaminophen 325 Mg Tablet PO 650 mg Q4HR PRN Administration Pain 1 to 4, or Fever Al Hydroxide/Mg Hydroxide 30 ml 05/25/24 12:00 05/28/24 11:34 Mag Hydrox/Al Hydrox/Simeth 30 Ml Udc PO 30 ml Q6H DENISHA Administration Atorvastatin Calcium 40 mg 05/25/24 21:00 05/27/24 22:39 Atorvastatin 40 Mg Tablet PO 40 mg QPM DENISHA Administration Ferrous Sulfate 325 mg 05/26/24 09:00 05/28/24 09:10 Ferrous Sulfate 325 Mg Tablet PO 325 mg DAILY DENISHA Administration Furosemide 40 mg 05/28/24 09:00 05/28/24 09:11 Furosemide 40 Mg Tablet PO 40 mg DAILY DENISHA Administration Insulin Human Lispro 1 - 5 unit 05/25/24 17:00 05/28/24 12:46 Insulin Lispro 300 Unit/3 Ml Pen SUBQ 1 unit 0800,1200,1700,2100 DENISHA Administration Protocol Levothyroxine Sodium 100 mcg 05/26/24 07:00 05/28/24 06:14 Levothyroxine 100 Mcg Tablet PO 100 mcg QDAC DENISHA Administration Levothyroxine Sodium 37.5 mcg 05/26/24 07:00 05/28/24 06:14 Levothyroxine 75 Mcg Tablet PO 37.5 mcg QDAC DENISHA Administration Midodrine 5 mg 05/26/24 18:00 05/28/24 16:07 Midodrine 2.5 Mg Tablet PO 5 mg 0600,1100,1700 DENISHA Administration Multi-Ingredient Ointment 1 applic 05/24/24 22:03 05/25/24 02:15 Zinc Oxide 20% Oint 30 Gm Tube TOP 1 applic PRN PRN Administration Skin Care Multi-Ingredient Ointment 1 applic 05/28/24 09:00 05/28/24 09:11 Zinc Oxide 20% Oint 30 Gm Tube TOP 1 applic BID DENISHA Administration Multivitamins 1 tab 05/26/24 12:00 05/28/24 11:34 Multivitamin Tablet PO 1 tab 1200 DENISHA Administration Nystatin 1 applic 05/28/24 09:00 05/28/24 09:11 Nystatin Powder 15 Gm TOP 1 applic BID DENISHA Administration Ondansetron HCl 4 mg 05/24/24 18:07 Ondansetron Odt 4 Mg Tablet TL Q6HR PRN Nausea / Vomiting Ondansetron HCl 4 mg 05/24/24 18:07 Ondansetron 4 Mg/2 Ml Vial IVP Q6HR PRN Nausea / Vomiting Pantoprazole Sodium 40 mg 05/27/24 16:00 05/28/24 16:07 Pantoprazole 40 Mg Tablet PO 40 mg BIDAC DENISHA Administration Sodium Bicarbonate 1,300 mg 05/25/24 17:00 05/28/24 09:11 Sodium Bicarbonate 650 Mg Tablet PO 1,300 mg BID DENISHA Administration Sodium Chloride 10 ml 05/24/24 18:07 05/26/24 20:36 Sodium Chloride Flush 0.9% 10 Ml Syringe IVP 10 ml PRN PRN Administration NEEDED PER PROVIDER ORDERS Sodium Chloride 10 ml 05/24/24 18:07 05/28/24 16:07 Sodium Chloride Flush 0.9% 10 Ml Syringe IVP 10 ml 0100,0900,1700 DENISHA Administration Objective Vital Signs/Intake & Output Reviewed Vital Signs: Yes Vital Signs: Vital Signs x48h Temp Pulse Pulse Resp BP Pulse Ox 05/28/24 15:50 36.6 C 63 16 100/35 L 97 05/28/24 12:50 36.7 C 66 20 133/51 H 96 Intake & Output: Intake & Output 05/25/24 05/26/24 05/27/24 05/28/24 23:59 23:59 23:59 23:59 Intake Total 1500 / 1500 1860 / 1860 880 / 880 2517 / 2517 Output Total 2650 / 2650 2475 / 2475 4150 / 4150 2190 / 2190 Balance -1150 / -1150 -615 / -615 -3270 / -3270 327 / 327 Objective General Appearance: positive No acute distress and Alert Eyes Bilateral: positive Normal inspection ENT: positive No signs of dehydration Neck: positive No JVD Respiratory: positive Chest non-tender, No respiratory distress and Breath sounds nml Cardiovascular: positive Regular rate & rhythm and Systolic murmur Abdomen: positive Non-tender Skin: positive Color nml Extremities: positive Non-tender and Other (mild pedal edema on the right. ) Neurologic/Psychiatric: positive Oriented x3 and Other (moves all extremities equally. ) Lab Results 05/28/24 05:53 05/28/24 05:53 Other Labs: Lab Results x24hrs 05/28/24 05/28/24 05/28/24 Range/Units 11:18 07:37 05:53 WBC 5.5 (4.8-10.8) x10^3/uL RBC 2.87 L (4.70-6.10) 10^6/uL Hgb 8.6 L (14.0-18.0) g/dL Hct 27.6 L (42.0-52.0) % MCV 96.2 H (80.0-94.0) fL MCH 30.0 (27.0-31.0) pg MCHC 31.2 L (32.0-36.0) g/dL RDW 17.1 H (12.0-15.0) % Plt Count 91 L (130-450) 10^3/uL MPV 9.9 (7.4-11.4) fL Neut # (Auto) 3.7 (1.5-6.6) 10^3/uL Lymph # (Auto) 1.0 L (1.5-3.5) 10^3/uL [place] # (Auto) 0.6 (0.0-1.0) 10^3/uL Eos # (Auto) 0.3 (0.0-0.7) 10^3/uL Baso # (Auto) 0.0 (0.0-0.1) 10^3/uL Absolute Nucleated RBC 0.00 x10^3/uL Nucleated RBC % 0.0 /100WBC Sodium 144 (135-145) mmol/L Potassium 4.0 (3.5-4.5) mmol/L Chloride 109 (101-111) mmol/L Carbon Dioxide 29 (21-32) mmol/L Anion Gap 6.0 (6-13) BUN 95 H* (6-20) mg/dL Creatinine 2.0 H (0.6-1.3) mg/dL Estimated GFR (MDRD) 33 L (>89) Glucose 155 H (74-104) mg/dL POC Whole Bld Glucose 161 151 (70-100) mg/dL Calcium 8.3 L (8.5-10.3) mg/dL Magnesium (1.7-2.3) mg/dL Total Bilirubin (0.2-1.0) mg/dL AST (10-42) IU/L ALT (10-60) IU/L Alkaline Phosphatase (42-121) IU/L Total Protein (6.4-8.9) g/dL Albumin (3.2-5.5) g/dL Globulin (2.1-4.2) g/dL Albumin/Globulin Ratio (1.0-2.2) TSH 5.79 H (0.34-5.60) uIU/mL Free T4 Direct 0.76 (0.58-1.64) ng/dL Crossmatch IS Only 05/27/24 05/27/24 05/27/24 Range/Units 21:14 19:05 16:42 WBC 4.6 L (4.8-10.8) x10^3/uL RBC 2.87 L (4.70-6.10) 10^6/uL Hgb 8.6 L (14.0-18.0) g/dL Hct 27.9 L (42.0-52.0) % MCV 97.2 H (80.0-94.0) fL MCH 30.0 (27.0-31.0) pg MCHC 30.8 L (32.0-36.0) g/dL RDW 17.2 H (12.0-15.0) % Plt Count 72 L (130-450) 10^3/uL MPV 10.9 (7.4-11.4) fL Neut # (Auto) 2.9 (1.5-6.6) 10^3/uL Lymph # (Auto) 0.9 L (1.5-3.5) 10^3/uL [place] # (Auto) 0.5 (0.0-1.0) 10^3/uL Eos # (Auto) 0.2 (0.0-0.7) 10^3/uL Baso # (Auto) 0.0 (0.0-0.1) 10^3/uL Absolute Nucleated RBC 0.02 x10^3/uL Nucleated RBC % 0.4 /100WBC Sodium 144 (135-145) mmol/L Potassium 4.1 (3.5-4.5) mmol/L Chloride 110 (101-111) mmol/L Carbon Dioxide 27 (21-32) mmol/L Anion Gap 7.0 (6-13) BUN 107 H* (6-20) mg/dL Creatinine 2.0 H (0.6-1.3) mg/dL Estimated GFR (MDRD) 33 L (>89) Glucose 153 H (74-104) mg/dL POC Whole Bld Glucose 141 160 (70-100) mg/dL Calcium 8.6 (8.5-10.3) mg/dL Magnesium 3.0 H (1.7-2.3) mg/dL Total Bilirubin 0.7 (0.2-1.0) mg/dL AST 34 (10-42) IU/L ALT 32 (10-60) IU/L Alkaline Phosphatase 72 (42-121) IU/L Total Protein 5.9 L (6.4-8.9) g/dL Albumin 3.0 L (3.2-5.5) g/dL Globulin 2.9 (2.1-4.2) g/dL Albumin/Globulin Ratio 1.0 (1.0-2.2) TSH (0.34-5.60) uIU/mL Free T4 Direct (0.58-1.64) ng/dL Crossmatch IS Only 05/24/24 Range/Units 14:38 WBC (4.8-10.8) x10^3/uL RBC (4.70-6.10) 10^6/uL Hgb (14.0-18.0) g/dL Hct (42.0-52.0) % MCV (80.0-94.0) fL MCH (27.0-31.0) pg MCHC (32.0-36.0) g/dL RDW (12.0-15.0) % Plt Count (130-450) 10^3/uL MPV (7.4-11.4) fL Neut # (Auto) (1.5-6.6) 10^3/uL Lymph # (Auto) (1.5-3.5) 10^3/uL [place] # (Auto) (0.0-1.0) 10^3/uL Eos # (Auto) (0.0-0.7) 10^3/uL Baso # (Auto) (0.0-0.1) 10^3/uL Absolute Nucleated RBC x10^3/uL Nucleated RBC % /100WBC Sodium (135-145) mmol/L Potassium (3.5-4.5) mmol/L Chloride (101-111) mmol/L Carbon Dioxide (21-32) mmol/L Anion Gap (6-13) BUN (6-20) mg/dL Creatinine (0.6-1.3) mg/dL Estimated GFR (MDRD) (>89) Glucose (74-104) mg/dL POC Whole Bld Glucose (70-100) mg/dL Calcium (8.5-10.3) mg/dL Magnesium (1.7-2.3) mg/dL Total Bilirubin (0.2-1.0) mg/dL AST (10-42) IU/L ALT (10-60) IU/L Alkaline Phosphatase (42-121) IU/L Total Protein (6.4-8.9) g/dL Albumin (3.2-5.5) g/dL Globulin (2.1-4.2) g/dL Albumin/Globulin Ratio (1.0-2.2) TSH (0.34-5.60) uIU/mL Free T4 Direct (0.58-1.64) ng/dL Crossmatch IS Only See Detail Assessment/Plan Problem List (1) Pulmonary edema: Impression: 05/28:1 episode of hypotension this morning. Improved with a liter of fluids. Continues to be mildly confused but is improving. He is able to tell me who his friend Bry is. his lungs are clear. His oxygenation is stable on room air. He does not have any paroxysmal nocturnal dyspnea. I have an echocardiogram which shows mild LVH with an ejection fraction of 75%. I do not believe he has an element of CHF. His lower extremity edema is resolving.He has been seen by Occupational Therapy today in the recommendation is for residential facility. We are starting search for SNF. 05/27:He continues to have hypotension which is symptomatic with ambulation. He is on midodrine. His ejection fraction is within normal limits and he has some aortic sclerosis. His mental status is much worse today. He is able to lie flat in bed is not having any paroxysmal dyspnea. And his lower extremity edema is not worse.He is -2800 mL for the day. But his creatinine continues to improve. I repeated labs this afternoon, given his change in mental status. I do not see any explanation. 05/26:He is likely in a acute heart failure along with his acute kidney failure. I am avoiding large volumes of fluid resuscitation. He received Lasix this morning with blood transfusion. 20 mg. His fluid balance is negative for 10 mL today. He continues to have some pitting edema on exam. Echocardiogram shows LVH with hyperdynamic systolic function 75% ejection fraction mildly dilated right ventricle with normal function pulmonary pressure 35 mmHg there is sclerosis of the aortic valve without stenosis and mild mitral calcification with trace regurgitation. He had some low blood pressures, for which midodrine was started. If his oxygenation worsens, will start IV diuresis. I am holding off for now because of his acute kidney failure. His kidneys are stable to improving, and he has not required supplemental oxygen. for now will stay the course. (2) Acute upper gastrointestinal bleeding: Impression: Protonix. I am giving this orally twice daily. I will continue this for 10 weeks. Underwent EGD per general surgery, Recommendations as follows: 1) Mylanta 30 ml PO Q6H for next 36 hours 2) PPI for next 10 weeks 3) Serial H&H and transfuse as indicated Pathology reviewed. It is H. pylori negative. There are mild patchy reactive changes on gastric biopsy. (3) Acute kidney failure: Impression: Renal ultrasound shows No hydronephrosis. The renal cortices are normal in appearance. There was some concern for bladder outlet obstruction. Wright has since been inserted. BMP in a.m. His renal function is stable to improving. His baseline creatinine is Not available to me. = 05/26/24 05/27/24 05/27/24 06:03 07:23 19:05 BUN 125 H* 107 H* Creatinine 2.6 H 2.2 H 2.0 H 05/28/24 05:53 BUN 95 H* Creatinine 2.0 H (4) Iron deficiency: Impression: His iron level on presentation was undetectably low. He received a dose of Ferrlecit. Resuming home iron supplementation I had a 25-minute phone discussion with his daughter this afternoon regarding the course of his care. His daughter had not previously been contacted this hospitalization as he had not asked us to do so. He had a phone conversation with his daughter this afternoon and we have subsequently made contact with her. I have spent 55 minutes in the care of this patient today. This includes time [id number], review and ordering of diagnostic imaging and laboratory studies.. Monitoring the patient's signs symptoms, evaluation of medication effectiveness and patient's response to treatment.
[2024-05-29 06:15] LABS: BASOPHILS % (AUTO) 0.9 %; EOSINOPHILS # (AUTO) 0.3 10^3/uL (0.0-0.7); EOSINOPHILS % (AUTO) 5.5 %; HCT - HEMATOCRIT 25.9 % (42.0-52.0); HGB - HEMOGLOBIN 7.8 g/dL (14.0-18.0); LYMPHOCYTES % (AUTO) 21.1 %; MEAN CORPUSCULAR HEMOGLOBIN 29.3 pg (27.0-31.0); MEAN CORPUSCULAR HGB CONC 30.1 g/dL (32.0-36.0); MEAN CORPUSCULAR VOLUME 97.4 fL (80.0-94.0); MEAN PLATELET VOLUME 10.6 fL (7.4-11.4); MONOCYTES # (AUTO) 0.6 10^3/uL (0.0-1.0); MONOCYTES % (AUTO) 11.7 %; NEUTROPHILS # (AUTO) 2.8 10^3/uL (1.5-6.6); NEUTROPHILS % (AUTO) 60.4 %; PLT - PLATELET COUNT 83 10^3/uL (130-450); RED BLOOD COUNT 2.66 10^6/uL (4.70-6.10); RED CELL DISTRIBUTION WIDTH 16.3 % (12.0-15.0); WHITE BLOOD COUNT 4.7 x10^3/uL (4.8-10.8)
[2024-05-29 06:28] LABS: CALCIUM 8.1 mg/dL (8.5-10.3); CREATININE 1.8 mg/dL (0.6-1.3); POTASSIUM 4.1 mmol/L (3.5-4.5)
--- NOTE | 2024-05-29 13:44 | PROVIDER PROGRESS NOTE ---
Subjective Prog Note Date Prog Note Date: 05/29/24 Prog Note Time: 11:00 Subjective Subjective: Much improved today. He is able to tell me about visitors and who they are. He has been talking to his daughter Jaja on the phone. When I have spoken to Jaja, she tells me that he is telling her that he is not well and that the end is near. He continues to have melanotic stools several times daily. He is eating well. Current Medications Current Medications Current Medications: Current Medications Generic Name Dose Route Start Last Admin Trade Name Freq PRN Reason Stop Dose Admin Acetaminophen 650 mg 05/24/24 18:07 05/28/24 18:12 Acetaminophen 325 Mg Tablet PO 650 mg Q4HR PRN Administration Pain 1 to 4, or Fever Al Hydroxide/Mg Hydroxide 30 ml 05/25/24 12:00 05/29/24 11:46 Mag Hydrox/Al Hydrox/Simeth 30 Ml Udc PO 30 ml Q6H DENISHA Administration Atorvastatin Calcium 40 mg 05/25/24 21:00 05/28/24 21:17 Atorvastatin 40 Mg Tablet PO 40 mg QPM DENISHA Administration Ferrous Sulfate 325 mg 05/26/24 09:00 05/29/24 08:49 Ferrous Sulfate 325 Mg Tablet PO 325 mg DAILY DENISHA Administration Furosemide 40 mg 05/28/24 09:00 05/29/24 08:49 Furosemide 40 Mg Tablet PO 40 mg DAILY DENISHA Administration Insulin Human Lispro 1 - 5 unit 05/25/24 17:00 05/29/24 11:45 Insulin Lispro 300 Unit/3 Ml Pen SUBQ 1 unit 0800,1200,1700,2100 DENISHA Administration Protocol Levothyroxine Sodium 100 mcg 05/26/24 07:00 05/29/24 06:48 Levothyroxine 100 Mcg Tablet PO 100 mcg QDAC DENISHA Administration Levothyroxine Sodium 37.5 mcg 05/26/24 07:00 05/29/24 06:48 Levothyroxine 75 Mcg Tablet PO 37.5 mcg QDAC DENISHA Administration Midodrine 5 mg 05/26/24 18:00 05/29/24 11:46 Midodrine 2.5 Mg Tablet PO 5 mg 0600,1100,1700 DENISHA Administration Multi-Ingredient Ointment 1 applic 05/24/24 22:03 05/25/24 02:15 Zinc Oxide 20% Oint 30 Gm Tube TOP 1 applic PRN PRN Administration Skin Care Multi-Ingredient Ointment 1 applic 05/28/24 09:00 05/29/24 08:49 Zinc Oxide 20% Oint 30 Gm Tube TOP 1 applic BID DENISHA Administration Multivitamins 1 tab 05/26/24 12:00 05/29/24 11:46 Multivitamin Tablet PO 1 tab 1200 DENISHA Administration Nystatin 1 applic 05/28/24 09:00 05/29/24 08:49 Nystatin Powder 15 Gm TOP 1 applic BID DENISHA Administration Ondansetron HCl 4 mg 05/24/24 18:07 Ondansetron Odt 4 Mg Tablet TL Q6HR PRN Nausea / Vomiting Ondansetron HCl 4 mg 05/24/24 18:07 Ondansetron 4 Mg/2 Ml Vial IVP Q6HR PRN Nausea / Vomiting Pantoprazole Sodium 40 mg 05/27/24 16:00 05/29/24 06:49 Pantoprazole 40 Mg Tablet PO 40 mg BIDAC DENISHA Administration Sodium Bicarbonate 1,300 mg 05/25/24 17:00 05/29/24 08:49 Sodium Bicarbonate 650 Mg Tablet PO 1,300 mg BID DENISHA Administration Sodium Chloride 10 ml 05/24/24 18:07 05/26/24 20:36 Sodium Chloride Flush 0.9% 10 Ml Syringe IVP 10 ml PRN PRN Administration NEEDED PER PROVIDER ORDERS Sodium Chloride 10 ml 05/24/24 18:07 05/29/24 08:50 Sodium Chloride Flush 0.9% 10 Ml Syringe IVP 10 ml 0100,0900,1700 DENISHA Administration Objective Vital Signs/Intake & Output Reviewed Vital Signs: Yes Vital Signs: Vital Signs x48h Temp Pulse Pulse Resp BP Pulse Ox 05/29/24 12:23 36.8 C 66 20 128/41 L 98 05/29/24 07:51 36.6 C 62 20 106/30 L 98 Intake & Output: Intake & Output 05/26/24 05/27/24 05/28/24 05/29/24 23:59 23:59 23:59 23:59 Intake Total 1860 / 1860 880 / 880 3007 / 3007 1460 / 1460 Output Total 2475 / 2475 4150 / 4150 2810 / 2810 275 / 275 Balance -615 / -615 -3270 / -3270 197 / 197 1185 / 1185 Objective General Appearance: positive No acute distress and Alert Eyes Bilateral: positive Normal inspection ENT: positive No signs of dehydration Neck: positive No JVD Respiratory: positive Chest non-tender, No respiratory distress and Breath sounds nml Cardiovascular: positive Regular rate & rhythm and Systolic murmur Abdomen: positive Non-tender and Other (obese) Skin: positive Color nml Extremities: positive Non-tender and Other (mild pedal edema on the right. ) Neurologic/Psychiatric: positive Oriented x3 and Other (moves all extremities equally. ) Lab Results 05/29/24 05:48 05/29/24 05:48 Other Labs: Lab Results x24hrs 05/29/24 05/29/24 05/29/24 Range/Units 11:12 07:34 05:48 WBC 4.7 L (4.8-10.8) x10^3/uL RBC 2.66 L (4.70-6.10) 10^6/uL Hgb 7.8 L (14.0-18.0) g/dL Hct 25.9 L (42.0-52.0) % MCV 97.4 H (80.0-94.0) fL MCH 29.3 (27.0-31.0) pg MCHC 30.1 L (32.0-36.0) g/dL RDW 16.3 H (12.0-15.0) % Plt Count 83 L (130-450) 10^3/uL MPV 10.6 (7.4-11.4) fL Neut # (Auto) 2.8 (1.5-6.6) 10^3/uL Lymph # (Auto) 1.0 L (1.5-3.5) 10^3/uL [place] # (Auto) 0.6 (0.0-1.0) 10^3/uL Eos # (Auto) 0.3 (0.0-0.7) 10^3/uL Baso # (Auto) 0.0 (0.0-0.1) 10^3/uL Absolute Nucleated RBC 0.00 x10^3/uL Nucleated RBC % 0.0 /100WBC Sodium 142 (135-145) mmol/L Potassium 4.1 (3.5-4.5) mmol/L Chloride 108 (101-111) mmol/L Carbon Dioxide 28 (21-32) mmol/L Anion Gap 6.0 (6-13) BUN 69 H (6-20) mg/dL Creatinine 1.8 H (0.6-1.3) mg/dL Estimated GFR (MDRD) 37 L (>89) Glucose 177 H (74-104) mg/dL POC Whole Bld Glucose 151 141 (70-100) mg/dL Calcium 8.1 L (8.5-10.3) mg/dL 05/28/24 05/28/24 Range/Units 20:29 16:42 WBC (4.8-10.8) x10^3/uL RBC (4.70-6.10) 10^6/uL Hgb (14.0-18.0) g/dL Hct (42.0-52.0) % MCV (80.0-94.0) fL MCH (27.0-31.0) pg MCHC (32.0-36.0) g/dL RDW (12.0-15.0) % Plt Count (130-450) 10^3/uL MPV (7.4-11.4) fL Neut # (Auto) (1.5-6.6) 10^3/uL Lymph # (Auto) (1.5-3.5) 10^3/uL [place] # (Auto) (0.0-1.0) 10^3/uL Eos # (Auto) (0.0-0.7) 10^3/uL Baso # (Auto) (0.0-0.1) 10^3/uL Absolute Nucleated RBC x10^3/uL Nucleated RBC % /100WBC Sodium (135-145) mmol/L Potassium (3.5-4.5) mmol/L Chloride (101-111) mmol/L Carbon Dioxide (21-32) mmol/L Anion Gap (6-13) BUN (6-20) mg/dL Creatinine (0.6-1.3) mg/dL Estimated GFR (MDRD) (>89) Glucose (74-104) mg/dL POC Whole Bld Glucose 168 128 (70-100) mg/dL Calcium (8.5-10.3) mg/dL Assessment/Plan Problem List (1) Pulmonary edema: Impression: 05/29: Calculation of his mean arterial pressure shows a range between 55 and 71. For the last 3 readings. He has had a normal heart rate. We will continue to get him up in the chair. He does remain on midodrine 5 mg 3 times daily. He has had minimal edema of his right lower extremity. He intermittently complains of pain in both lower extremities. He has none now. His lungs remain clear. he is lying flat in the bed. He is not having any dyspnea he is not having a increase in his respiratory rate. I will obtain a CXR in the AM. I have reviewed the images from the CXR on admit, and it certainly does appear that there is pulmonary edema, no effusion. 05/28:1 episode of hypotension this morning. Improved with a liter of fluids. Continues to be mildly confused but is improving. He is able to tell me who his friend Bry is. his lungs are clear. His oxygenation is stable on room air. He does not have any paroxysmal nocturnal dyspnea. I have an echocardiogram which shows mild LVH with an ejection fraction of 75%. I do not believe he has an element of CHF. His lower extremity edema is resolving.He has been seen by Occupational Therapy today in the recommendation is for residential facility. We are starting search for SNF. 05/27:He continues to have hypotension which is symptomatic with ambulation. He is on midodrine. His ejection fraction is within normal limits and he has some aortic sclerosis. His mental status is much worse today. He is able to lie flat in bed is not having any paroxysmal dyspnea. And his lower extremity edema is not worse.He is -2800 mL for the day. But his creatinine continues to improve. I repeated labs this afternoon, given his change in mental status. I do not see any explanation. 05/26:He is likely in a acute heart failure along with his acute kidney failure. I am avoiding large volumes of fluid resuscitation. He received Lasix this morning with blood transfusion. 20 mg. His fluid balance is negative for 10 mL today. He continues to have some pitting edema on exam. Echocardiogram shows LVH with hyperdynamic systolic function 75% ejection fraction mildly dilated right ventricle with normal function pulmonary pressure 35 mmHg there is sclerosis of the aortic valve without stenosis and mild mitral calcification with trace regurgitation. He had some low blood pressures, for which midodrine was started. If his oxygenation worsens, will start IV diuresis. I am holding off for now because of his acute kidney failure. His kidneys are stable to improving, and he has not required supplemental oxygen. for now will stay the course. (2) Acute upper gastrointestinal bleeding: Impression: Protonix. I am giving this orally twice daily. I will continue this for 10 weeks. He continues to have some melanotic stools. I believe this is clearing from his GI bleed. He is also on iron supplementation so it is difficult to tell He is not have any abdominal pain he is not having any dyspepsia. He is tolerating a diet. Underwent EGD per general surgery, Recommendations as follows: 1) Mylanta 30 ml PO Q6H for next 36 hours 2) PPI for next 10 weeks 3) Serial H&H and transfuse as indicated Pathology reviewed. It is H. pylori negative. There are mild patchy reactive changes on gastric biopsy. (3) Acute kidney failure: Impression: Renal ultrasound shows No hydronephrosis. The renal cortices are normal in appearance. There was some concern for bladder outlet obstruction. Wright has since been inserted. BMP in a.m. His renal function is stable to improving. His baseline creatinine is Not available to me. (4) Iron deficiency: Impression: His iron level on presentation was undetectably low. He received a dose of Ferrlecit. Resuming home iron supplementation Laboratory Tests 05/27/24 05/28/24 05/29/24 19:05 05:53 05:48 Hgb 8.6 L 8.6 L 7.8 L There have been some difficulties with communication with this patient. He has been confused for much of his hospitalization. He is someone who does not have any family close by. his daughter is in [facility] and was not aware that he was in the hospital. He has multiple friends who have come by the hospital, but he was not recognizing any of them and we were unsure about violating his confidentiality. Over the last 24 hours his mental status has begun to clear and he is recognizing his friends and therefore giving us permission to involve them in his care. As stated previously, I had several discussions with his daughter yesterday evening. She is involved with social work and choosing his residential facility and he is more more able to be involved in his choices. 05/29: At this time I do not believe he is fully ready to engage in advance care planning discussion, although I anticipate this is something that could happen this afternoon or tomorrow. Given that his daughter will be here tomorrow, can do ACP at that time. 05/29: 15 min phone conversation with daughter this afternoon. She has decided to come for a visit. She has many questions about her dad's care, and how he is doing. he tells her that he is not doing well. This is at odds with what we are saying, that he is improving every day. It sounds like he really wants her come. I have spent 40 minutes in the care of this patient today. This includes time [id number], review and ordering of diagnostic imaging and laboratory studies.. Monitoring the patient's signs symptoms, evaluation of medication effectiveness and patient's response to treatment.
[2024-05-30 05:48] LABS: BASOPHILS % (AUTO) 0.7 %; EOSINOPHILS # (AUTO) 0.3 10^3/uL (0.0-0.7); EOSINOPHILS % (AUTO) 6.8 %; HCT - HEMATOCRIT 24.7 % (42.0-52.0); HGB - HEMOGLOBIN 7.7 g/dL (14.0-18.0); LYMPHOCYTES # (AUTO) 0.9 10^3/uL (1.5-3.5); LYMPHOCYTES % (AUTO) 22.4 %; MEAN CORPUSCULAR HEMOGLOBIN 30.1 pg (27.0-31.0); MEAN CORPUSCULAR HGB CONC 31.2 g/dL (32.0-36.0); MEAN CORPUSCULAR VOLUME 96.5 fL (80.0-94.0); MEAN PLATELET VOLUME 10.1 fL (7.4-11.4); MONOCYTES # (AUTO) 0.5 10^3/uL (0.0-1.0); MONOCYTES % (AUTO) 11.9 %; NEUTROPHILS # (AUTO) 2.4 10^3/uL (1.5-6.6); NEUTROPHILS % (AUTO) 57.7 %; PLT - PLATELET COUNT 83 10^3/uL (130-450); RED BLOOD COUNT 2.56 10^6/uL (4.70-6.10); RED CELL DISTRIBUTION WIDTH 15.8 % (12.0-15.0); WHITE BLOOD COUNT 4.1 x10^3/uL (4.8-10.8)
[2024-05-30 06:13] LABS: CALCIUM 8.2 mg/dL (8.5-10.3); CREATININE 1.8 mg/dL (0.6-1.3); POTASSIUM 4.2 mmol/L (3.5-4.5)
--- NOTE | 2024-05-30 10:55 | XRAY Report ---
PROCEDURE: XR Chest 1V INDICATIONS: pulm edema TECHNIQUE: One view of the chest was acquired. COMPARISON: Chest x-ray 05/24/2024 FINDINGS: Surgical changes and devices: None. Lungs and pleura: Less prominent appearance of previous increased pulmonary vascularity. Mediastinum: Mediastinal contours appear normal. Heart size is enlarged. Bones and chest wall: No suspicious bony lesions. Overlying soft tissues appear unremarkable. IMPRESSION: Improved appearance of previous pulmonary vascularity. Reviewed by: Eden Jarquin MD on 05/30/2024 10:54 AM PST Approved by: Eden Jarquin MD on 05/30/2024 10:54 AM [facility] Station ID: [id number]
--- NOTE | 2024-05-30 15:47 | PROVIDER PROGRESS NOTE ---
Subjective Prog Note Date Prog Note Date: 05/30/24 Prog Note Time: 12:30 Subjective Subjective: Just finished eating lunch. He is feeling well today. he remembers what [facility] he is going to. Current Medications Current Medications Current Medications: Current Medications Generic Name Dose Route Start Last Admin Trade Name Freq PRN Reason Stop Dose Admin Acetaminophen 650 mg 05/24/24 18:07 05/30/24 13:03 Acetaminophen 325 Mg Tablet PO 650 mg Q4HR PRN Administration Pain 1 to 4, or Fever Al Hydroxide/Mg Hydroxide 30 ml 05/25/24 12:00 05/30/24 11:18 Mag Hydrox/Al Hydrox/Simeth 30 Ml Udc PO 30 ml Q6H DENISHA Administration Atorvastatin Calcium 40 mg 05/25/24 21:00 05/29/24 20:31 Atorvastatin 40 Mg Tablet PO 40 mg QPM DENISHA Administration Ferrous Sulfate 325 mg 05/26/24 09:00 05/30/24 08:37 Ferrous Sulfate 325 Mg Tablet PO 325 mg DAILY DENISHA Administration Furosemide 40 mg 05/28/24 09:00 05/30/24 08:37 Furosemide 40 Mg Tablet PO 40 mg DAILY DENISHA Administration Insulin Human Lispro 1 - 5 unit 05/25/24 17:00 05/30/24 11:50 Insulin Lispro 300 Unit/3 Ml Pen SUBQ 2 unit 0800,1200,1700,2100 DENISHA Administration Protocol Levothyroxine Sodium 100 mcg 05/26/24 07:00 05/30/24 06:23 Levothyroxine 100 Mcg Tablet PO 100 mcg QDAC DENISHA Administration Levothyroxine Sodium 37.5 mcg 05/26/24 07:00 05/30/24 06:23 Levothyroxine 75 Mcg Tablet PO 37.5 mcg QDAC DENISHA Administration Midodrine 5 mg 05/26/24 18:00 05/30/24 11:19 Midodrine 2.5 Mg Tablet PO 5 mg 0600,1100,1700 DENISHA Administration Multi-Ingredient Ointment 1 applic 05/24/24 22:03 05/25/24 02:15 Zinc Oxide 20% Oint 30 Gm Tube TOP 1 applic PRN PRN Administration Skin Care Multi-Ingredient Ointment 1 applic 05/28/24 09:00 05/30/24 08:38 Zinc Oxide 20% Oint 30 Gm Tube TOP 1 applic BID DENISHA Administration Multivitamins 1 tab 05/26/24 12:00 05/30/24 11:18 Multivitamin Tablet PO 1 tab 1200 DENISHA Administration Nystatin 1 applic 05/28/24 09:00 05/30/24 08:37 Nystatin Powder 15 Gm TOP 1 applic BID DENISHA Administration Ondansetron HCl 4 mg 05/24/24 18:07 Ondansetron Odt 4 Mg Tablet TL Q6HR PRN Nausea / Vomiting Ondansetron HCl 4 mg 05/24/24 18:07 Ondansetron 4 Mg/2 Ml Vial IVP Q6HR PRN Nausea / Vomiting Pantoprazole Sodium 40 mg 05/27/24 16:00 05/30/24 06:23 Pantoprazole 40 Mg Tablet PO 40 mg BIDAC DENISHA Administration Sodium Bicarbonate 1,300 mg 05/25/24 17:00 05/30/24 08:37 Sodium Bicarbonate 650 Mg Tablet PO 1,300 mg BID DENISHA Administration Sodium Chloride 10 ml 05/24/24 18:07 05/26/24 20:36 Sodium Chloride Flush 0.9% 10 Ml Syringe IVP 10 ml PRN PRN Administration NEEDED PER PROVIDER ORDERS Sodium Chloride 10 ml 05/24/24 18:07 05/30/24 08:38 Sodium Chloride Flush 0.9% 10 Ml Syringe IVP Not Given 0100,0900,1700 [facility] Objective Vital Signs/Intake & Output Reviewed Vital Signs: Yes Vital Signs: Vital Signs x48h Temp Pulse Resp BP Pulse Ox 05/30/24 15:40 36.9 C 57 L 18 114/48 L 98 05/30/24 13:01 36.7 C 59 L 20 128/43 L 98 Intake & Output: Intake & Output 05/27/24 05/28/24 05/29/24 05/30/24 23:59 23:59 23:59 23:59 Intake Total 880 / 880 3007 / 3007 1999 / 1999 1610 / 1610 Output Total 4150 / 4150 2810 / 2810 275 / 275 1200 / 1200 Balance -3270 / -3270 197 / 197 1725 / 1725 410 / 410 Objective General Appearance: positive No acute distress and Alert Eyes Bilateral: positive Normal inspection ENT: positive No signs of dehydration Neck: positive No JVD Respiratory: positive Chest non-tender, No respiratory distress and Breath sounds nml Cardiovascular: positive Regular rate & rhythm and Systolic murmur Abdomen: positive Non-tender and Other (obese) Skin: positive Color nml Extremities: positive Non-tender and Other (mild pedal edema on the right. ) Neurologic/Psychiatric: positive Oriented x3 and Other (moves all extremities equally. ) Lab Results 05/30/24 05:35 05/30/24 05:35 Other Labs: Lab Results x24hrs 05/30/24 05/30/24 05/30/24 Range/Units 11:08 07:28 05:35 WBC 4.1 L (4.8-10.8) x10^3/uL RBC 2.56 L (4.70-6.10) 10^6/uL Hgb 7.7 L (14.0-18.0) g/dL Hct 24.7 L (42.0-52.0) % MCV 96.5 H (80.0-94.0) fL MCH 30.1 (27.0-31.0) pg MCHC 31.2 L (32.0-36.0) g/dL RDW 15.8 H (12.0-15.0) % Plt Count 83 L (130-450) 10^3/uL MPV 10.1 (7.4-11.4) fL Neut # (Auto) 2.4 (1.5-6.6) 10^3/uL Lymph # (Auto) 0.9 L (1.5-3.5) 10^3/uL Stanly # (Auto) 0.5 (0.0-1.0) 10^3/uL Eos # (Auto) 0.3 (0.0-0.7) 10^3/uL Baso # (Auto) 0.0 (0.0-0.1) 10^3/uL Absolute Nucleated RBC 0.00 x10^3/uL Nucleated RBC % 0.0 /100WBC Sodium 142 (135-145) mmol/L Potassium 4.2 (3.5-4.5) mmol/L Chloride 107 (101-111) mmol/L Carbon Dioxide 30 (21-32) mmol/L Anion Gap 5.0 L (6-13) BUN 54 H (6-20) mg/dL Creatinine 1.8 H (0.6-1.3) mg/dL Estimated GFR (MDRD) 37 L (>89) Glucose 139 H (74-104) mg/dL POC Whole Bld Glucose 196 126 (70-100) mg/dL Calcium 8.2 L (8.5-10.3) mg/dL 05/29/24 05/29/24 Range/Units 20:22 17:01 WBC (4.8-10.8) x10^3/uL RBC (4.70-6.10) 10^6/uL Hgb (14.0-18.0) g/dL Hct (42.0-52.0) % MCV (80.0-94.0) fL MCH (27.0-31.0) pg MCHC (32.0-36.0) g/dL RDW (12.0-15.0) % Plt Count (130-450) 10^3/uL MPV (7.4-11.4) fL Neut # (Auto) (1.5-6.6) 10^3/uL Lymph # (Auto) (1.5-3.5) 10^3/uL Stanly # (Auto) (0.0-1.0) 10^3/uL Eos # (Auto) (0.0-0.7) 10^3/uL Baso # (Auto) (0.0-0.1) 10^3/uL Absolute Nucleated RBC x10^3/uL Nucleated RBC % /100WBC Sodium (135-145) mmol/L Potassium (3.5-4.5) mmol/L Chloride (101-111) mmol/L Carbon Dioxide (21-32) mmol/L Anion Gap (6-13) BUN (6-20) mg/dL Creatinine (0.6-1.3) mg/dL Estimated GFR (MDRD) (>89) Glucose (74-104) mg/dL POC Whole Bld Glucose 155 167 (70-100) mg/dL Calcium (8.5-10.3) mg/dL Assessment/Plan Problem List (1) Acute upper gastrointestinal bleeding: Impression: Protonix. I am giving this orally twice daily. I will continue this for 10 weeks. He continues to have some melanotic stools. I believe this is clearing from his GI bleed. He is also on iron supplementation so it is difficult to tell He is not have any abdominal pain he is not having any dyspepsia. He is tolerating a diet. Underwent EGD per general surgery, Recommendations as follows: 1) Mylanta 30 ml PO Q6H for next 36 hours 2) PPI for next 10 weeks 3) Serial H&H and transfuse as indicated Pathology reviewed. It is H. pylori negative. There are mild patchy reactive changes on gastric biopsy. (2) Pulmonary edema: Impression: 05/30: Chest x-ray shows decreased pulmonary vascularity. This combined with his clinical situation means pulmonary edema is improving. He continues to need the midodrine to maintain relatively normal tensive vital signs. So I will continue this medication on discharge. His lungs are clear to auscultation and his lower extremity edema is minimal. 05/29: Calculation of his mean arterial pressure shows a range between 55 and 71. For the last 3 readings. He has had a normal heart rate. We will continue to get him up in the chair. He does remain on midodrine 5 mg 3 times daily. He has had minimal edema of his right lower extremity. He intermittently complains of pain in both lower extremities. He has none now. His lungs remain clear. he is lying flat in the bed. He is not having any dyspnea he is not having a increase in his respiratory rate. I will obtain a CXR in the AM. I have reviewed the images from the CXR on admit, and it certainly does appear that there is pulmonary edema, no effusion. 05/28:1 episode of hypotension this morning. Improved with a liter of fluids. Continues to be mildly confused but is improving. He is able to tell me who his friend Bry is. his lungs are clear. His oxygenation is stable on room air. He does not have any paroxysmal nocturnal dyspnea. I have an echocardiogram which shows mild LVH with an ejection fraction of 75%. I do not believe he has an element of CHF. His lower extremity edema is resolving.He has been seen by Occupational Therapy today in the recommendation is for correction facility. We are starting search for SNF. 05/27:He continues to have hypotension which is symptomatic with ambulation. He is on midodrine. His ejection fraction is within normal limits and he has some aortic sclerosis. His mental status is much worse today. He is able to lie flat in bed is not having any paroxysmal dyspnea. And his lower extremity edema is not worse.He is -2800 mL for the day. But his creatinine continues to improve. I repeated labs this afternoon, given his change in mental status. I do not see any explanation. 05/26:He is likely in a acute heart failure along with his acute kidney failure. I am avoiding large volumes of fluid resuscitation. He received Lasix this morning with blood transfusion. 20 mg. His fluid balance is negative for 10 mL today. He continues to have some pitting edema on exam. Echocardiogram shows LVH with hyperdynamic systolic function 75% ejection fraction mildly dilated right ventricle with normal function pulmonary pressure 35 mmHg there is sclerosis of the aortic valve without stenosis and mild mitral calcification with trace regurgitation. He had some low blood pressures, for which midodrine was started. If his oxygenation worsens, will start IV diuresis. I am holding off for now because of his acute kidney failure. His kidneys are stable to improving, and he has not required supplemental oxygen. for now will stay the course. (3) Acute kidney failure: Impression: Renal ultrasound shows No hydronephrosis. The renal cortices are normal in appearance. There was some concern for bladder outlet obstruction. Wright has since been inserted. His renal function is stable to improving. His baseline creatinine is Not available to me. Laboratory Tests 05/28/24 05/29/24 05/30/24 05:53 05:48 05:35 Creatinine 2.0 H 1.8 H 1.8 H (4) Iron deficiency: Impression: His iron level on presentation was undetectably low. He received a dose of Ferrlecit. Resuming home iron supplementation Laboratory Tests 05/28/24 05/29/24 05/30/24 05:53 05:48 05:35 Hgb 8.6 L 7.8 L 7.7 L 05/30: daughter at bedside today. Please see ACP discussion notes. He is ready to go to SNF tomorrow. We were unable to obtain transport today. Today was an avoidable day. 05/29:There have been some difficulties with communication with this patient. He has been confused for much of his hospitalization. He is someone who does not have any family close by. his daughter is in [facility] and was not aware that he was in the hospital. He has multiple friends who have come by the hospital, but he was not recognizing any of them and we were unsure about violating his confidentiality. Over the last 24 hours his mental status has begun to clear and he is recognizing his friends and therefore giving us permission to involve them in his care. As stated previously, I had several discussions with his daughter yesterday evening. She is involved with social work and choosing his correction facility and he is more more able to be involved in his choices. 05/29: At this time I do not believe he is fully ready to engage in advance care planning discussion, although I anticipate this is something that could happen this afternoon or tomorrow. Given that his daughter will be here tomorrow, can do ACP at that time. 05/29: 15 min phone conversation with daughter this afternoon. She has decided to come for a visit. She has many questions about her dad's care, and how he is doing. he tells her that he is not doing well. This is at odds with what we are saying, that he is improving every day. It sounds like he really wants her come. I have spent 30 minutes in the care of this patient today. This includes time [id number], review and ordering of diagnostic imaging and laboratory studies.. Monitoring the patient's signs symptoms, evaluation of medication effectiveness and patient's response to treatment.
--- NOTE | 2024-05-30 17:05 | ADVANCE CARE PLANNING NOTE ---
Advance Care Planning Planning Encounter Date: 05/30/24 Time: 03:30 Purpose: determine wishes going forward Parties in Attendance: Patient, friend Hortencia, daughter Loreto Wilkinsonurm SATISH Decisional Capacity of the Patient: Alert and oriented with insight into his situation. Diagnosis for Encounter (1) Pulmonary edema: (2) Acute upper gastrointestinal bleeding: (3) Acute kidney failure: (4) Iron deficiency: Encounter Subjective/Patient's Story: Eddy is a very private person. He lives alone. His friends know that they can count on him showing up at the [employer] 2 times a week. However in the past he has not shown up for a period of weeks because he is gone out of town yet he is like not let anyone know that he is doing so. However with this illness ultimately what happened was a friend of his went by his house and discovered that he was not well. Otherwise he likely would have on the floor at home. His daughter came today from [facility] where she lives. She would like to take him back there with her eventually. He is significantly debilitated and is going to require snf placement after this hospitalization. The plan is for him to transfer there tomorrow. Objective/Medical Story: Will he does not take very good care of himself. He almost makes a joke of it. He takes 70 units of Lantus insulin at home, however since he has been here in been on a mechanical soft diet not even a diabetic diet he is requiring minimal insulin. He knows that he eats the wrong things at home and he has trouble really caring about this. He does have some the sequelae of diabetes including neuropathy. But is rather ambivalent about controlling his diabetes so that his neuropathy does not progress. This is a hospitalization resulting from a GI bleed. He got very anemic and unstable at home. He has now stabilized and once he recovers should have minimal sequelae. When asked about his desires with regards to CODE STATUS he states that he would not want to be on a ventilator and he would not want to have CPR. 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 He is well aware of what this entails. Separately, after our CODE STATUS discussion his daughter speaks to me out in the hallway. She disagrees with his decisions and would like him to have a short trial of intubation should this be necessary. I have recommended to her that she take home the form and think about what this means. Plan: Patient signed POLST form today DNR selective treatment. His daughter does not agree with this decision. Additional Discussion: I had additional discussion with his daughter in the hallway afterwards. She did not voice her disagreement while in the room while having this discussion. I suggested to her that she go home with the POLST form read it carefully and consider her father's wishes. We will revisit this discussion in the a.m. Code Status: Do Not Attempt Resuscitation Time spent on advance care plannin
[2024-05-31 05:54] LABS: BASOPHILS % (AUTO) 0.7 %; EOSINOPHILS # (AUTO) 0.3 10^3/uL (0.0-0.7); EOSINOPHILS % (AUTO) 6.3 %; HCT - HEMATOCRIT 25.2 % (42.0-52.0); HGB - HEMOGLOBIN 7.7 g/dL (14.0-18.0); LYMPHOCYTES # (AUTO) 0.9 10^3/uL (1.5-3.5); LYMPHOCYTES % (AUTO) 22.4 %; MEAN CORPUSCULAR HEMOGLOBIN 29.3 pg (27.0-31.0); MEAN CORPUSCULAR HGB CONC 30.6 g/dL (32.0-36.0); MEAN CORPUSCULAR VOLUME 95.8 fL (80.0-94.0); MEAN PLATELET VOLUME 10.3 fL (7.4-11.4); MONOCYTES # (AUTO) 0.4 10^3/uL (0.0-1.0); MONOCYTES % (AUTO) 10.5 %; NEUTROPHILS # (AUTO) 2.5 10^3/uL (1.5-6.6); NEUTROPHILS % (AUTO) 59.9 %; PLT - PLATELET COUNT 89 10^3/uL (130-450); RED BLOOD COUNT 2.63 10^6/uL (4.70-6.10); RED CELL DISTRIBUTION WIDTH 15.8 % (12.0-15.0); WHITE BLOOD COUNT 4.1 x10^3/uL (4.8-10.8)
[2024-05-31 06:15] LABS: CALCIUM 8.4 mg/dL (8.5-10.3); POTASSIUM 4.3 mmol/L (3.5-4.5)
--- NOTE | 2024-05-31 10:47 | Discharge Summary ---
"Discharge Summary Admit Date: 05/24/24 Discharge Date: 05/31/24 Discharging Provider: Loreto Hutton PA-C Primary Care Provider: [facility] Code Status: Do Not Attempt Resuscitation DIAGNOSES Discharge Diagnoses with Status of Each Condition: Acute upper GI bleed, resolved treatment as detailed below Pulmonary edema, resolved per chest x-ray done on the date prior to discharge continue Lasix Acute renal failure unknown baseline creatinine creatinine 2.0 on discharge Iron deficiency anemia, iron level on presentation undetectably low given 1 dose of Ferrlecit while inpatient continue home iron therapy Arthritis, Tylenol only for pain no NSAIDs Diabetes mellitus, previously on Lantus 70 units a day. Controlled with minimal SSI while here HPI History of Present Illness: 69-year-old male past medical history significant for diabetes on insulin. He reports generalized weakness times several days. He was seen at [facility] on 05/21/2024 with a cardiac focus which was negative. He has continued to feel weaker and presents here. He reports melanotic stools. He reports 1 episode of vomiting without amanda blood or coffee-ground emesis. No abdominal time tenderness. Denies fever, chills, chest pain, shortness of breath. He reports history of ulcers in the past. No history of alcoholism, liver disease, blood thinners. In the ER, chest x-ray was performed which showed prominent interstitial markings likely representing pulmonary edema. His H&H was noted to be 5.4/17.6. WBC 12.9. BUN/creatinine was 187/2.5. Iron less than 10. General surgery was contacted by the ER provider, he plans to see this patient in consultation. 2 units of blood were ordered by ER provider, and hospitalist was contacted for admission for acute blood loss anemia secondary to upper GI bleed CONSULTS | PROCEDURES Procedures: EGD: Doran gastroduodenitis. H. pylori biopsies negative nonbleeding duodenal ulcers Chest x-ray on admission shows pulmonary edema resolved prior to discharge. Continue Lasix Retroperitoneal ultrasound shows limited exam. Kidneys are grossly normal in appearance. No hydronephrosis. There was a bladder outlet obstruction noted on ultrasound. Patient had a Wright for a period of days and subsequently voided independently. There is abdominal ascites. HOSPITAL COURSE Hospital Course: This is a 69-year-old man who presented to the emergency department via EMS with a week of increasing dyspnea and lightheadedness. He had had melena increasing weakness and occasional abdominal cramping at home. When he presented to our emergency department he had lower extremity pitting edema and melanotic stools. He had had 1 episode of vomiting without blood. He was started on IV Protonix and admitted to the hospitalist service. Chest x-ray at that time showed pulmonary edema. Hemoglobin at time of admission was 5.4. BUN was elevated at 187 creatinine elevated 2.5. I do not know what the patient's baseline renal function is. He was previously seen by the outpatient clinic on [facility]. He was taking 70 units of insulin daily prior to this admission. He was also taking Jardiance 10 mg a day and metformin. During this hospitalization he has required quite minimal insulin. A total of 4 units the day prior to discharge. This was a sliding scale. We are unable to get an accurate hemoglobin A1c due to multiple blood transfusions. With regards to his pulmonary edema he has diuresed well with 40 mg of Lasix a day. With regards to his acute kidney failure secondary to hypovolemia he has recovered somewhat to a creatinine between 1.8 and 2.0. His BUN has cleared was as high as 187 but on the date of discharge is 50. With the resolution of the elevated BUN his mental status has improved. Throughout his hospitalization he has experienced hypotension. I currently have him on midodrine 5 mg 3 times daily. His maps have been normal but his blood pressures have been low with systolics in the 100s. He was previously on telmisartan/HCTZ 80/25. We have held this while he has been in the hospital. With regards to CODE STATUS, I had a discussion with he and his daughter which was quite lengthy on the day prior to discharge. Mr. Lentz feels that he wants to be DNR DNI. His daughter after the discussion pulls me into the hallway and tells me that she believes that he should have a short trial of intubation. I have encouraged her to think about this. MINNA as signed by the patient is DNR DNI. His daughter Jaja is his surrogate medical decision maker. Patient was previously on metformin for his diabetes. I have held this while he is in the hospital. I would I will not be resuming this due to his renal failure. I would encourage provider to follow his blood sugars at the SNF and institute diabetes management as is indicated ALLERGIES Allergies Allergy/AdvReac Type Severity Reaction Status Date / Time No Known Drug Allergies Allergy Verified 05/24/24 13:05 MEDICATIONS Ambulatory Orders Medication Instructions Recorded Confirmed acetaminophen 325 mg tablet 650 mg (2 x 325 mg) PO Q4HR PRN 05/31/24 Pain 1 to 4, or Fever #30 tabs aluminum-mag hydroxide-simethicone 30 ml PO Q6H PRN dyspepsia #3,000 05/31/24 200 mg-200 mg-20 mg/5 mL oral susp mL (Mag-Al Plus) atorvastatin 40 mg tablet 40 mg PO QPM #30 tabs 05/31/24 empagliflozin 10 mg tablet 10 mg PO DAILY #30 tabs 05/31/24 05/25/24 (Jardiance) ferrous sulfate 325 mg (65 mg 325 mg PO DAILY #30 tabs 05/31/24 05/25/24 iron) tablet (Feosol) furosemide 40 mg tablet 40 mg PO DAILY #30 tabs 05/31/24 levothyroxine 137 mcg tablet 137 mcg PO DAILY #30 tabs 05/31/24 05/25/24 (Synthroid) midodrine 2.5 mg tablet 5 mg (2 x 2.5 mg) PO 05/31/24 0600,1100,1700 #90 tabs multivitamin with folic acid 400 1 tab PO 1200 #30 tabs 05/31/24 mcg tablet (Thera) pantoprazole 40 mg tablet,delayed 40 mg PO BIDAC #60 tabs 05/31/24 release sodium bicarbonate 650 mg tablet 1,300 mg (2 x 650 mg) PO BID #120 05/31/24 tabs PHYSICAL EXAM AT DISCHARGE Physical Exam Other/Comments: General Appearance: positive No acute distress and Alert Eyes Bilateral: positive Normal inspection ENT: positive No signs of dehydration Neck: positive No JVD Respiratory: positive Chest non-tender, No respiratory distress and Breath sounds nml Cardiovascular: positive Regular rate & rhythm and Systolic murmur Abdomen: positive Non-tender and Other (obese) Skin: positive Color nml Extremities: positive Non-tender and Other (mild pedal edema on the right. ) Neurologic/Psychiatric: positive Oriented x3 and Other (moves all extremities equally. ) LABS 05/31/24 05:33 05/31/24 05:33 FOLLOW UP Follow Up: Care provider at SNF as assigned, then should either obtain community primary care, patient has been interested in seeing MILIND Mercedes or return to [facility] TIME SPENT Time Spent in Discharge (Minutes): 45 Discharge Plan Discharge Patient Disposition: 03 [facility] DC/Xfer Condition: Stable Prescriptions: New acetaminophen 325 mg Tablet 650 mg PO Q4HR PRN (Reason: Pain 1 to 4, or Fever) Qty: 30 0RF atorvastatin 40 mg Tablet 40 mg PO QPM Qty: 30 0RF furosemide 40 mg Tablet 40 mg PO DAILY Qty: 30 0RF midodrine 2.5 mg Tablet 5 mg PO 0600,1100,1700 Qty: 90 0RF alum-mag hydroxide-simeth [Mag-Al Plus] 200-200-20 mg/5 mL Suspension 30 ml PO Q6H PRN (Reason: dyspepsia) Qty: 3000 0RF pantoprazole 40 mg Tablet,Delayed Release (Dr/Ec) 40 mg PO BIDAC Qty: 60 0RF multivitamin with folic acid [Thera] 400 mcg Tablet 1 tab PO 1200 Qty: 30 0RF sodium bicarbonate 650 mg Tablet 1,300 mg PO BID Qty: 120 0RF Continued levothyroxine [Synthroid] 137 mcg tablet 137 mcg PO DAILY Qty: 30 0RF ferrous sulfate [Feosol] 325 mg (65 mg iron) tablet 325 mg PO DAILY Qty: 30 0RF Jardiance 10 mg tablet 10 mg PO DAILY Qty: 30 0RF Discontinued (DME) pen needle, diabetic 1 EACH needle 1 ea miscellaneous DAILY PM Qty: 100 0RF insulin glargine [Lantus Solostar U-100 Insulin] 100 UNIT/ML insulin pen 70 unit subcut QPM Qty: 1 1RF metformin 1,000 mg tablet 1,000 mg PO BID rosuvastatin 20 mg tablet 20 mg PO HS telmisartan-hydrochlorothiazid 80-25 mg tablet 1 tab PO DAILY multivitamin Tablet 1 tab PO DAILY Activity Restrictions: Activity as Tolerated Diet: Diabetic Health Concerns: This is a 69-year-old man who presented to the emergency department via EMS with a week of increasing dyspnea and lightheadedness. He had had melena increasing weakness and occasional abdominal cramping at home. When he presented to our emergency department he had lower extremity pitting edema and melanotic stools. He had had 1 episode of vomiting without blood. He was started on IV Protonix and admitted to the hospitalist service. Chest x-ray at that time showed pulmonary edema. Hemoglobin at time of admission was 5.4. BUN was elevated at 187 creatinine elevated 2.5. I do not know what the patient's baseline renal function is. He was previously seen by the outpatient clinic on [facility]. He was taking 70 units of insulin daily prior to this admission. He was also taking Jardiance 10 mg a day and metformin. During this hospitalization he has required quite minimal insulin. A total of 4 units the day prior to discharge. This was a sliding scale. We are unable to get an accurate hemoglobin A1c due to multiple blood transfusions. With regards to his pulmonary edema he has diuresed well with 40 mg of Lasix a day. With regards to his acute kidney failure secondary to hypovolemia he has recovered somewhat to a creatinine between 1.8 and 2.0. His BUN has cleared was as high as 187 but on the date of discharge is 50. With the resolution of the elevated BUN his mental status has improved. Throughout his hospitalization he has experienced hypotension. I currently have him on midodrine 5 mg 3 times daily. His maps have been normal but his blood pressures have been low with systolics in the 100s. He was previously on telmisartan/HCTZ 80/25. We have held this while he has been in the hospital. With regards to CODE STATUS, I had a discussion with he and his daughter which was quite lengthy on the day prior to discharge. Mr. Lentz feels that he wants to be DNR DNI. His daughter after the discussion pulls me into the hallway and tells me that she believes that he should have a short trial of intubation. I have encouraged her to think about this. MINNA as signed by the patient is DNR DNI. His daughter Jaja is his surrogate medical decision maker. Patient was previously on metformin for his diabetes. I have held this while he is in the hospital. I would I will not be resuming this due to his renal failure. I would encourage provider to follow his blood sugars at the SNF and institute diabetes management as is indicated. Care Plan Goals: Mr. Lentz is being discharged to assisted facility after his hospitalization for GI bleed and acute renal failure after being evaluated by physical therapy and Occupational Therapy. The recommendation is for SNF to increase strength. Occupational Therapy recommends assisted as well. Previous to this hospitalization he was independent in the community. He was going to the [employer] twice a week where he has lots of friends who look after him. He was driving, and ambulating independently without assistive devices. Assessment: Debilitated, significantly below baseline after hospitalization for GI bleed Plan of Treatment: PPI, pantoprazole twice daily x 10 weeks and then daily. New Biopsies at time of EGD show doran gastroduodenitis with multiple superficial nonbleeding duodenal ulcers. Biopsy is negative for H. pylori. Surgery recommended Mylanta 30 mL liters p.o. every 6 hours for the next 36 hours this was completed and is [place] been de-escalated to as needed surgery has recommended PPI twice daily for the next 10 weeks. Print Language: Georgian Patient Instructions: Surgery Anesthesia After"
[2024-05-31 11:10] VITALS: BP 120/47; TEMP 97.9; O2SAT 100
== END 2024-05-31 11:35 | DRG 378 ==
LOC: ED 12:54 → MS3 16:53 → MS2 17:55
PROVIDERS: ADMIT Nurse Practitioner Acute Care; ATTEND Nurse Practitioner Acute Care
DX: J81.1 Chronic pulmonary edema; N17.9 Acute kidney failure, unspecified; I48.91 Unspecified atrial fibrillation; R40.0 Somnolence; Z66 Do not resuscitate; D72.829 Elevated white blood cell count, unspecified; D64.9 Anemia, unspecified; K26.4 Chronic or unspecified duodenal ulcer with hemorrhage; M19.90 Unspecified osteoarthritis, unspecified site; R07.9 Chest pain, unspecified; R53.1 Weakness; Z87.11 Personal history of peptic ulcer disease; E66.9 Obesity, unspecified; D62 Acute posthemorrhagic anemia; E61.1 Iron deficiency; K92.1 Melena; E11.9 Type 2 diabetes mellitus without complications; K29.91 Gastroduodenitis, unspecified, with bleeding; E86.1 Hypovolemia; R25.2 Cramp and spasm; R94.31 Abnormal electrocardiogram [ECG] [EKG]; Z79.4 Long term (current) use of insulin; Z87.891 Personal history of nicotine dependence; I95.9 Hypotension, unspecified; Z68.41 Body mass index [BMI] 40.0-44.9, adult